=== PATIENT | male | born 1955 | race Caucasian/White ===

== ENCOUNTER → 2018-06-04 | Outpatient (CLI) | payer BC ==
[2018-06-04 12:29] LABS: Basophils # (A) 0.1 k/uL (0-0.2); Basophils % (A) 1 %; Eosinophils # (A) 0.7 k/uL (0-0.7); Eosinophils % (A) 14 %; HCT 43.3 % (39.0-53.0); HGB 14.3 gm/dL (13.0-17.5); Lymphocytes # (A) 1.5 k/uL (1.0-4.8); Lymphocytes % (A) 29 %; MCH 31.3 pg (25.0-35.0); MCHC 33.1 g/dL (31.0-37.0); MCV 94.4 fL (80.0-100.0); Mean Platelet Volume 8.1; Monocytes # (A) 0.2 k/uL (0-1.0); Monocytes % (A) 5 %; Neutrophils # (A) 2.6 k/uL (1.3-7.7); Neutrophils % (A) 50 %; Platelet Count 193 k/uL (150-450); RBC 4.59 m/uL (4.30-5.90); RDW 13.1 % (11.5-15.5); WBC 5.2 k/uL (3.8-10.6)
[2018-06-04 20:50] LABS: Albumin 4.2 g/dL (3.80-4.90); Albumin/Globulin Ratio 1.83 (1.20-2.10); Anion Gap 9.6 mmol/L (4.00-12.00); Calcium 9.1 mg/dL (8.7-10.3); Carbon Dioxide 24.4 mmol/L (21.6-31.8); Globulin 2.3 g/dL (1.6-3.3); Potassium 4.6 mmol/L (3.5-5.5); Total Bilirubin 0.5 mg/dL (0.2-1.2); Total Protein 6.5 g/dL (6.2-8.2)
[2018-06-04 20:53] LABS: T4, Free (Free Thyroxine) 1.2 ng/dL (0.80-1.80)
== END ==
LOC: LABWHC1 11:08
PROVIDERS: ATTEND Internal Medicine
DX: Z00.00 Encounter for general adult medical examination without abnormal findings (principal); E78.5 Hyperlipidemia, unspecified; I10 Essential (primary) hypertension; Z12.5 Encounter for screening for malignant neoplasm of prostate
CPT/HCPCS: 84439; 80061; 80053; 84443; 85025; 83036; 36415; G0103

== ENCOUNTER → 2019-06-03 | Outpatient (CLI) | payer BC ==
[2019-06-03 12:38] LABS: Basophils % (A) 1 %; Eosinophils # (A) 0.7 k/uL (0-0.7); Eosinophils % (A) 14 %; HCT 44.4 % (39.0-53.0); HGB 14.6 gm/dL (13.0-17.5); Lymphocytes # (A) 1.5 k/uL (1.0-4.8); Lymphocytes % (A) 30 %; MCH 31.7 pg (25.0-35.0); MCHC 32.9 g/dL (31.0-37.0); MCV 96.2 fL (80.0-100.0); Mean Platelet Volume 8.7; Monocytes # (A) 0.3 k/uL (0-1.0); Monocytes % (A) 5 %; Neutrophils # (A) 2.4 k/uL (1.3-7.7); Neutrophils % (A) 48 %; Platelet Count 245 k/uL (150-450); RBC 4.61 m/uL (4.30-5.90); RDW 12.7 % (11.5-15.5); WBC 5.1 k/uL (3.8-10.6)
[2019-06-03 18:47] LABS: African American GFR (CKD) 103.5 (60.0-200.0); Albumin 4.7 g/dL (3.80-4.90); Albumin/Globulin Ratio 2.14 (1.60-3.17); Anion Gap 8.6 mmol/L (4.00-12.00); Calcium 9.8 mg/dL (8.7-10.3); Carbon Dioxide 22.4 mmol/L (21.6-31.8); Chol/HDL Ratio 5.05; Globulin 2.2 g/dL (1.6-3.3); LDL Cholesterol,Calculated 114.8 mg/dL (0.0-131.0); Non-African American GFR(CKD) 89.3 (60.0-200.0); Potassium 4.8 mmol/L (3.5-5.5); Total Bilirubin 0.4 mg/dL (0.2-1.2); Total Protein 6.9 g/dL (6.2-8.2); VLDL Calculation 47.2 mg/dL (5.00-40.00)
[2019-06-03 18:54] LABS: T4, Free (Free Thyroxine) 1.2 ng/dL (0.80-1.80)
[2019-06-03 20:44] LABS: Hemoglobin A1C 6.2 % (4.0-6.0)
== END | disposition home or self-care (01) ==
LOC: LABWHC1 11:20
PROVIDERS: ATTEND Internal Medicine
DX: Z00.00 Encounter for general adult medical examination without abnormal findings (principal); E78.5 Hyperlipidemia, unspecified; I10 Essential (primary) hypertension
CPT/HCPCS: 84439; 80061; 80053; 84443; 85025; 83036; 36415; G0103

== ENCOUNTER → 2020-05-25 | Outpatient (CLI) | payer MEDICARE | END | disposition home or self-care (01) | LOC: LABWHC1 11:20 | PROVIDERS: ATTEND Internal Medicine | DX: U07.1 COVID-19 (principal) | CPT/HCPCS: U0003; C9803 ==

== ENCOUNTER → 2020-07-06 | Outpatient (CLI) | payer MEDICARE ==
[2020-07-06 21:11] LABS: Basophils # (A) 0.06 X 10*3/uL (0.00-0.10); Basophils % (A) 1.2 %; Eosinophils # (A) 0.57 X 10*3/uL (0.04-0.35); Eosinophils % (A) 11.1 %; HCT 41.4 % (39.6-50.0); HGB 13.6 g/dL (13.0-17.0); Lymphocytes # (A) 1.65 X 10*3/uL (0.90-5.00); Lymphocytes % (A) 32.2 %; MCH 31.7 pg (27.0-32.0); MCHC 32.9 g/dL (32.0-37.0); MCV 96.5 fL (80.0-97.0); Mean Platelet Volume 11.9 fL (9.5-12.2); Monocytes # (A) 0.42 X 10*3/uL (0.20-1.00); Monocytes % (A) 8.2 %; Neutrophils # (A) 2.41 X 10*3/uL (1.80-7.70); Neutrophils % (A) 47.1 %; Platelet Count 225 X 10*3/uL (140-440); RBC 4.29 X 10*6/uL (4.40-5.60); RDW 12.4 % (11.5-14.5); WBC 5.12 X 10*3/uL (4.50-10.00)
[2020-07-06 22:10] LABS: African American GFR (CKD) 90.5 (60.0-200.0); Albumin 4.7 g/dL (3.80-4.90); Albumin/Globulin Ratio 2.35 (1.60-3.17); Anion Gap 9.3 mmol/L (4.00-12.00); Calcium 9.6 mg/dL (8.7-10.3); Carbon Dioxide 22.7 mmol/L (21.6-31.8); Chol/HDL Ratio 4.62; LDL Cholesterol,Calculated 116.2 mg/dL (0.0-131.0); Non-African American GFR(CKD) 78.1 (60.0-200.0); Potassium 4.5 mmol/L (3.5-5.5); Total Bilirubin 0.6 mg/dL (0.2-1.2); Total Protein 6.7 g/dL (6.2-8.2); VLDL Calculation 24.8 mg/dL (5.00-40.00)
[2020-07-06 23:06] LABS: Hemoglobin A1C 5.6 % (4.0-6.0)
== END | disposition home or self-care (01) ==
LOC: LABWHC1 11:34
PROVIDERS: ATTEND Internal Medicine
DX: Z00.00 Encounter for general adult medical examination without abnormal findings (principal); E11.9 Type 2 diabetes mellitus without complications; Z12.5 Encounter for screening for malignant neoplasm of prostate; I10 Essential (primary) hypertension; E78.5 Hyperlipidemia, unspecified
CPT/HCPCS: 84439; 80061; 80053; 84443; 85025; 83036; 36415; G0103

== ENCOUNTER 2022-05-12 06:27 | Day surgery (SDC) | payer MEDICARE ==
[2022-05-12 07:02] LABS: Glucose,Whole Blood 122 mg/dL (70-110)
[2022-05-12] MEDS ORDERED: PROPOFOL 10 MG/ML 20 ML VIAL IV ONE (07:18)
[2022-05-12] MEDS ORDERED: LIDOCAINE 2% INJ 20 MG/ML (2 ML VIAL) ONE (07:18)
[2022-05-12] MEDS ORDERED: IV FLUID CONTINUATION 900 ML IV ONE (07:38)
--- NOTE | 2022-05-12 07:38 | P.PCN ---
Date of Procedure: 05/12/22 Procedure(s) Performed: Brief history: Patient is a pleasant 67-year-old white male scheduled for an elective upper endoscopy as well as colonoscopy as a part of evaluation of iron deficiency anemia.he denies any abdominal pain. Procedure performed: Esophagogastroduodenoscopy and biopsy Colonoscopy Preoperative diagnosis: iron deficiency anemia [place] [facility] [place] After informed consent was obtained from the patient was brought into the endoscopy unit and IV sedation was administered by anesthesia under continuous monitoring. Initially upper endoscopy was done. The Olympus GF 160 video endoscope was inserted inserted into the mouth and esophagus intubated without any difficulty and was gradually advanced into the stomach and duodenum and carefully examined. The bulb and second part of the duodenum appeared normal. The scope was then withdrawn into the stomach adequately insufflated with air and upon careful examination the antrum and body, cardia and fundus appeared normal. The scope was then withdrawn into the esophagus. The GE junction was located at 40 cm to the incisors. small sliding-type well hernia noted. There were linear erosions and once a fissure ulceration at the GE junction consistent with LA grade C reflux esophagitis. Rest of the esophagus appeared normal. Patient tolerated the procedure well. At this time the patient continued to remain sedation. Initial digital rectal examination was normal. Olympus CF 160 video colonoscope was then inserted into the rectum and gradually advanced to the cecum without any difficulty. Careful examination was performed as the scope was gradually being withdrawn. The prep was fair.fair.. The cecum, ascending colon, transverse colon, descending colon, sigmoid colon and rectum appeared normal. Scattered sigmoid diverticulosis. Retroflexion was performed in the rectum and no lesions were noted. Patient tolerated the procedure well. Impression: 1.Upper endoscopy revealed linear erosions and once a fissure ulceration at the GE junction consistent with LA grade C reflux esophagitis, small hiatal hernia and mild gastritis 2.Colonoscopy was within normal limits with no evidence of colorectal neoplasia, except for scattered sigmoid diverticulosis Recommendations: Findings of this examination were discussed with the patient as well as his family. He was advised to follow with the biopsy results. He'll be started on Prilosec 20 mg daily and briefly educated about antireflux measures. Recommend a repeat screening colonoscopy in 10 years.
[2022-05-12 07:47] VITALS: RESP 18
[2022-05-12 08:20] VITALS: PULSE 88
[2022-05-12 08:22] VITALS: BP 131/76
== END 2022-05-12 08:40 | disposition home or self-care (01) ==
LOC: ORWHC2ENDO 06:27
PROVIDERS: ATTEND Internal Medicine Gastroenterology
DX: K29.50 Unspecified chronic gastritis without bleeding (principal); K44.9 Diaphragmatic hernia without obstruction or gangrene; K57.30 Diverticulosis of large intestine without perforation or abscess without bleeding; K25.9 Gastric ulcer, unspecified as acute or chronic, without hemorrhage or perforation; K31.89 Other diseases of stomach and duodenum; D50.9 Iron deficiency anemia, unspecified
CPT/HCPCS: 88305; 45378; 43239; J2704; J2001

== ENCOUNTER → 2023-01-10 | Outpatient (CLI) | payer MEDICARE ==
[2023-01-11 02:05] LABS: Basophils # (A) 0.06 X 10*3/uL (0.00-0.10); Eosinophils # (A) 0.52 X 10*3/uL (0.04-0.35); HCT 42.9 % (39.6-50.0); HGB 14.3 d/dL (13.0-17.0); Lymphocytes # (A) 1.49 X 10*3/uL (0.90-5.00); Lymphocytes % (A) 25.9 %; MCH 32.6 pg (27.0-32.0); MCHC 33.3 d/dL (32.0-37.0); MCV 97.9 FL (80.0-97.0); Mean Platelet Volume 11.9 FL (9.5-12.2); Monocytes # (A) 0.38 X 10*3/uL (0.20-1.00); Monocytes % (A) 6.6 %; NRBC Per 100 WBC 0 X 10*3/uL (0.00-0.01); Neutrophils % (A) 57.3 %; Platelet Count 234 X 10*3/uL (140-440); RBC 4.38 X 10*6/uL (4.40-5.60); RDW 12.2 % (11.5-14.5); WBC 5.76 X 10*3/uL (4.50-10.00)
[2023-01-11 03:08] LABS: ALT 38 U/L (10-49); AST 29 U/L (14-35); Albumin 4.5 d/dL (3.8-4.9); Albumin/Globulin Ratio 1.73 Ratio (1.60-3.17); Alkaline Phosphatase 60 U/L (41-126); Blood Urea Nitrogen 14.2 mg/dL (9.0-27.0); Calcium 9.9 mg/dL (8.7-10.3); Chloride 108 mmol/L (96-109); Chol/HDL Ratio 4.96 Ratio; Globulin 2.6 d/dL (1.6-3.3); Glucose 145 mg/dL (70-110); LDL Cholesterol,Calculated 131.5 mg/dL (0.0-131.0); Sodium 141 mmol/L (135-145); Total Bilirubin 0.4 mg/dL (0.3-1.2); Total Protein 7.1 d/dL (6.2-8.2)
== END | disposition home or self-care (01) ==
LOC: LABWHC1 11:12
PROVIDERS: ATTEND Internal Medicine
DX: Z00.00 Encounter for general adult medical examination without abnormal findings (principal); Z12.5 Encounter for screening for malignant neoplasm of prostate; I10 Essential (primary) hypertension; E11.9 Type 2 diabetes mellitus without complications; E78.2 Mixed hyperlipidemia; M19.90 Unspecified osteoarthritis, unspecified site
CPT/HCPCS: 84439; 80061; 80053; 84443; 85025; 82306; 83036; 36415; G0103

== ENCOUNTER → 2024-10-09 | Outpatient (CLI) | payer MEDICARE ==
[2024-10-09 21:05] LABS: ALT 30 U/L (10-49); AST 18 U/L (14-35); Albumin 4.3 g/dL (3.8-4.9); Albumin/Globulin Ratio 1.65 Ratio (1.60-3.17); Alkaline Phosphatase 65 U/L (41-126); Blood Urea Nitrogen 22.2 mg/dL (9.0-27.0); Calcium 9.5 mg/dL (8.7-10.3); Carbon Dioxide 19.7 mmol/L (21.6-31.8); Chloride 108 mmol/L (96-109); Chol/HDL Ratio 5.87 Ratio; Globulin 2.6 g/dL (1.6-3.3); Glucose 149 mg/dL (70-110); LDL Cholesterol,Calculated 138.8 mg/dL (0.0-131.0); PSA Annual Screen 0.579 ng/mL (0.000-4.000); Potassium 4.9 mmol/L (3.5-5.5); Sodium 139 mmol/L (135-145); T4, Free (Free Thyroxine) 1.05 ng/dL (0.80-1.80); Total Bilirubin 0.2 mg/dL (0.3-1.2); Total Protein 6.9 g/dL (6.2-8.2)
[2024-10-09 21:20] LABS: Basophils # (A) 0.06 X 10*3/uL (0.00-0.10); Basophils % (A) 0.9 %; Eosinophils # (A) 0.67 X 10*3/uL (0.04-0.35); Eosinophils % (A) 10.2 %; HCT 39.9 % (39.6-50.0); HGB 13.6 g/dL (13.0-17.0); Lymphocytes # (A) 1.78 X 10*3/uL (0.90-5.00); MCH 32.4 pg (27.0-32.0); MCHC 34.1 g/dL (32.0-37.0); Mean Platelet Volume 11.6 FL (9.5-12.2); Monocytes # (A) 0.48 X 10*3/uL (0.20-1.00); Monocytes % (A) 7.3 %; NRBC Per 100 WBC 0 X 10*3/uL (0.00-0.01); Neutrophils # (A) 3.58 X 10*3/uL (1.80-7.70); Neutrophils % (A) 54.3 %; Platelet Count 267 X 10*3/uL (140-440); RDW 12.3 % (11.5-14.5); WBC 6.59 X 10*3/uL (4.50-10.00)
== END | disposition home or self-care (01) ==
LOC: LABWHC1 14:27
PROVIDERS: ATTEND Internal Medicine
DX: Z12.5 Encounter for screening for malignant neoplasm of prostate (principal); I10 Essential (primary) hypertension; E78.5 Hyperlipidemia, unspecified
CPT/HCPCS: 84439; 80061; 80053; 84443; 85025; 83036; 36415; G0103

== ENCOUNTER 2024-12-02 10:08 | Inpatient (IN) | payer MEDICARE ==
--- NOTE | 2024-12-02 10:45 | ED ---
General Adult HPI - General Chief complaint: Abdominal Pain Stated complaint: Abd pain, vomiting Time Seen by Provider: 12/02/24 10:14 Source: patient, RN notes reviewed Mode of arrival: ambulatory Limitations: no limitations - History of Present Illness Initial comments: 6-year-old male presents to the emergency department for evaluation of right-sided abdominal pain. Patient notes that this started around noon yesterday. He notes the pain is in the right lower quadrant. He notes that his aggravated with food. He is unable to get comfortable. He does endorse nausea and vomiting. Reports decrease in his bowel movements. Denies any fever or chills. Denies any prior abdominal surgeries. Past medical history includes hypertension, diabetes. - Related Data Home Medications Medication Instructions Recorded Confirmed metFORMIN HCL [Glucophage] 500 mg PO BID 05/10/22 12/02/24 Betamethasone Dipropionate 1 applic TOPICAL DAILY PRN 12/02/24 12/02/24 [Betamethasone Dipropionate 0.05%] Fluocinonide 0.05% [Lidex 0.05% 1 applic TOPICAL BID PRN 12/02/24 12/02/24 cream] Hydrocortisone Cream 1 applic TOPICAL BID PRN 12/02/24 12/02/24 [Hydrocortisone 2.5% Cream] Omeprazole 20 mg PO DAILY PRN 12/02/24 12/02/24 Simvastatin [Zocor] 20 mg PO DAILY 12/02/24 12/02/24 Triamcinolone 0.1% Ointment 1 applic TOPICAL BID PRN 12/02/24 12/02/24 [Kenalog 0.1% Ointment] glipiZIDE [glipiZIDE ER] 10 mg PO DAILY 12/02/24 12/02/24 oxyCODONE-APAP 5-325MG [Percocet 1 tab PO Q6H PRN 12/02/24 12/02/24 5-325 mg] Previous Rx's Medication Instructions Recorded Apixaban [Eliquis] 5 mg PO BID #60 tab 12/03/24 Naproxen [Naprosyn] 500 mg PO BID PRN 3 Days #0 12/04/24 amLODIPine [Norvasc] 10 mg PO DAILY #30 tab 12/04/24 lisinopriL [Zestril] 40 mg PO DAILY #60 tab 12/04/24 Allergies Allergy/AdvReac Type Severity Reaction Status Date / Time No Known Allergies Allergy Verified 12/02/24 12:06 Review of Systems ROS Statement: Those systems with pertinent positive or pertinent negative responses have been documented in the HPI. ROS Other: All systems not noted in ROS Statement are negative. Past Medical History Past Medical History: Diabetes Mellitus, Hyperlipidemia, Hypertension History of Any Multi-Drug Resistant Organisms: None Reported Past Surgical History: Orthopedic Surgery Additional Past Surgical History / Comment(s): rt shoulder arthroscopy rotator cuff repair, Past Anesthesia/Blood Transfusion Reactions: No Reported Reaction Past Psychological History: No Psychological Hx Reported Smoking Status: Never smoker General Exam Limitations: no limitations General appearance: alert, in no apparent distress Head exam: Present: atraumatic, normocephalic, normal inspection Eye exam: Present: normal appearance, PERRL, EOMI. Absent: scleral icterus, conjunctival injection, periorbital swelling ENT exam: Present: normal exam, mucous membranes moist Neck exam: Present: normal inspection. Absent: tenderness, meningismus, lymphadenopathy Respiratory exam: Present: normal lung sounds bilaterally. Absent: respiratory distress, wheezes, rales, rhonchi, stridor Cardiovascular Exam: Present: regular rate, irregular rhythm, normal heart sounds. Absent: systolic murmur, diastolic murmur, rubs, gallop, clicks GI/Abdominal exam: Present: soft, tenderness (Right lower quadrant), normal bowel sounds. Absent: distended, guarding, rebound, rigid Extremities exam: Present: normal inspection, full ROM, normal capillary refill. Absent: tenderness, pedal edema, joint swelling, calf tenderness Neurological exam: Present: alert, oriented X3 Psychiatric exam: Present: normal affect, normal mood Skin exam: Present: warm, dry, intact, normal color. Absent: rash Course Vital Signs 12/02/24 12/02/24 12/02/24 10:10 16:17 20:00 Temperature 97.6 F Pulse Rate 83 79 Pulse Rate [ 85 Pulse Oximetery ] Respiratory 20 20 Rate Blood Pressure 166/98 135/76 Blood Pressure [Right Arm] O2 Sat by Pulse 98 98 Oximetry 12/02/24 12/02/24 12/03/24 21:00 23:42 00:30 Temperature 97.8 F 99 F Pulse Rate 67 81 Pulse Rate [ 95 Pulse Oximetery ] Respiratory 17 17 16 Rate Blood Pressure 128/79 136/67 Blood Pressure 126/80 [Right Arm] O2 Sat by Pulse 96 96 98 Oximetry Medical Decision Making - Medical Decision Making Was pt. sent in by a medical professional or institution (LATOYA Conde, TOPOGRAPHICAL FIELD ASSISTANT, urgent care, hospital, or long-term...) When possible be specific @ -No Did you speak to anyone other than the patient for history (EMS, parent, family, police, friend...)? What history was obtained from this source @ -No Did you review nursing and triage notes (agree or disagree)? Why? @ -I reviewed and agree with nursing and triage notes Were old charts reviewed (outside hosp., previous admission, EMS record, old EKG, old radiological studies, urgent care reports/EKG's, long-term records)? Report findings @ -No old charts were reviewed Differential Diagnosis (chest pain, altered mental status, abdominal pain women, abdominal pain men, vaginal bleeding, weakness, fever, dyspnea, syncope, headache, dizziness, GI bleed, back pain, seizure, CVA, palpatations, mental health, musculoskeletal)? @ -Differential Abdominal Pain Men: Appendicitis, cholecystitis, diverticulosis, ischemic bowel, pancreatitis, hepat itis, UTI, gastroenteritis, AAA, incarcerated hernia, bowel obstruction, constipation, inflammatory bowel, hepatitis, peptic ulcer disease, splenic infarction, perforated viscus, testicular torsion, this is not meant to be an all-inclusive list EKG interpreted by me (3pts min.). @ -EKG@1120 shows A-fib with a rate of 80, QRS 104, QT/QTc [id number] X-rays interpreted by me (1pt min.). @ -None done CT interpreted by me (1pt min.). @ -CT of the abdomen pelvis obtained reveals a 6 mm right-sided urolithiasis U/S interpreted by me (1pt. min.). @ -None done What testing was considered but not performed or refused? (CT, X-rays, U/S, labs)? Why? @ -None What meds were considered but not given or refused? Why? @ -None Did you discuss the management of the patient with other professionals (professionals i.e. LATOYA Conde, TOPOGRAPHICAL FIELD ASSISTANT, lab, RT, psych nurse, social and political studies professor, video production assistant, teacher, chief innovation officer, outsole caser)? Give summary @ -Management discussed with [facility] was accepting of the admission Was smoking cessation discussed for >3mins.? @ -No Was critical care preformed (if so, how long)? @ -No Were there social determinants of health that impacted care today? How? (Homelessness, low income, unemployed, alcoholism, drug addiction, transportation, low edu. Level, literacy, decrease access to med. care, [facility], rehab)? @ -No Was there de-escalation of care discussed even if they declined (Discuss DNR or withdrawal of care, Hospice)? DNR status @ -No What co-morbidities impacted this encounter? (DM, HTN, Smoking, COPD, CAD, Cancer, CVA, ARF, Chemo, Hep., AIDS, mental health diagnosis, sleep apnea, morbid obesity)? @ -None Was patient admitted / discharged? Hospital course, mention meds given and route, prescriptions, significant lab abnormalities, going to OR and other pertinent info. @ -Admitted patient presented emergency department for evaluation of abdominal pain. EKG was obtained which shows A-fib with a rate of 80. Patient does not have a history of atrial fibrillation. Laboratory studies reveal. Creatinine 1.9, creatinine 1.3 which is mildly elevated from the patient's baseline. UA reveals moderate blood but no evidence of infectious process.CT abdomen pelvis reveals mild right sided hydronephrosis secondary to 6 mm obstructing calculus at the UPJ. Patient's pain well-controlled with Toradol. Patient will be admitted for new onset afib and kidney stone. Patient understanding and agreeable with plan. Patient stable at time of admission. Case discussed with Dr. Barba Undiagnosed new problem with uncertain prognosis? @ -afib Drug Therapy requiring intensive monitoring for toxicity (Heparin, Nitro, Insulin, Cardizem)? @ -heparin Were any procedures done? @ -No Diagnosis/symptom? @ -urolithiasis, new onset afib Acute, or Chronic, or Acute on Chronic? @ -acute Uncomplicated (without systemic symptoms) or Complicated (systemic symptoms)? @ -uncomplicated Side effects of treatment? @ -No Exacerbation, Progression, or Severe Exacerbation? @ -No Poses a threat to life or bodily function? How? (Chest pain, USA, CT, pneumonia, PE, COPD, DKA, ARF, appy, cholecystitis, CVA, Diverticulitis, Homicidal, Suicidal, threat to staff... and all critical care pts) @ -No - Lab Data Result diagrams: 12/04/24 06:12 12/04/24 06:12 Lab Results 12/02/24 12/02/24 12/02/24 Range/Units 10:49 10:49 10:49 WBC 12.90 H (4.50-10.00) 10*3/uL RBC 4.39 L (4.40-5.60) 10*6/uL Hgb 14.1 (13.0-17.0) g/dL Hct 40.3 (39.6-50.0) % MCV 91.8 (80.0-97.0) fL MCH 32.1 H (27.0-32.0) pg MCHC 35.0 (32.0-37.0) g/dL Plt Count 237 (140-440) 10*3/uL MPV 10.7 (9.5-12.2) fL Immature Gran % (Auto) 0.3 % Neutrophils % 84.3 % Lymphocytes % 9.1 % Monocytes % 4.7 % Eosinophils % 1.1 % Basophils % 0.5 % Immature Gran # 0.04 (0.00-0.04) 10*3/uL Neutrophils # 10.87 H (1.80-7.70) 10*3/uL Lymphocytes # 1.18 (0.90-5.00) 10*3/uL Monocytes # 0.61 (0.20-1.00) 10*3/uL Eosinophils # 0.14 (0.04-0.35) 10*3/uL Basophils # 0.06 (0.00-0.10) 10*3/uL Sodium 133 L (137-145) mmol/L Potassium 4.5 (3.5-5.1) mmol/L Chloride 101 (98-107) mmol/L Carbon Dioxide 20 L (22-30) mmol/L Anion Gap 12 mmol/L BUN 17 (9-20) mg/dL Creatinine 1.31 H (0.66-1.25) mg/dL Est GFR (CKD-EPI)AfAm 64 (>60 ml/min/1.73 sqM) Est GFR (CKD-EPI)NonAf 55 (>60 ml/min/1.73 sqM) Glucose 191 H (74-99) mg/dL Plasma Lactic Acid Don 1.9 (0.7-2.0) mmol/L Calcium 9.4 (8.4-10.2) mg/dL Total Bilirubin 0.8 (0.2-1.3) mg/dL AST 28 (17-59) U/L ALT 44 (4-49) U/L Alkaline Phosphatase 70 (38-126) U/L Total Protein 7.3 (6.3-8.2) g/dL Albumin 4.4 (3.5-5.0) g/dL Amylase 54 (30-110) U/L Lipase 219 (23-300) U/L Urine Color Urine Appearance (Clear) Urine pH (5.0-8.0) Ur Specific Clarence (1.001-1.035) Urine Protein (Negative) Urine Glucose (UA) (Negative) Urine Ketones (Negative) Urine Blood (Negative) Urine Nitrite (Negative) Urine Bilirubin (Negative) Urine Urobilinogen (<2.0) mg/dL Ur Leukocyte Esterase (Negative) Urine RBC (0-5) /hpf Urine WBC (0-5) /hpf Ur Squamous Epith Cells (0-4) /hpf Urine Bacteria (None) /hpf 12/02/24 Range/Units 12:25 WBC (4.50-10.00) 10*3/uL RBC (4.40-5.60) 10*6/uL Hgb (13.0-17.0) g/dL Hct (39.6-50.0) % MCV (80.0-97.0) fL MCH (27.0-32.0) pg MCHC (32.0-37.0) g/dL Plt Count (140-440) 10*3/uL MPV (9.5-12.2) fL Immature Gran % (Auto) % Neutrophils % % Lymphocytes % % Monocytes % % Eosinophils % % Basophils % % Immature Gran # (0.00-0.04) 10*3/uL Neutrophils # (1.80-7.70) 10*3/uL Lymphocytes # (0.90-5.00) 10*3/uL Monocytes # (0.20-1.00) 10*3/uL Eosinophils # (0.04-0.35) 10*3/uL Basophils # (0.00-0.10) 10*3/uL Sodium (137-145) mmol/L Potassium (3.5-5.1) mmol/L Chloride (98-107) mmol/L Carbon Dioxide (22-30) mmol/L Anion Gap mmol/L BUN (9-20) mg/dL Creatinine (0.66-1.25) mg/dL Est GFR (CKD-EPI)AfAm (>60 ml/min/1.73 sqM) Est GFR (CKD-EPI)NonAf (>60 ml/min/1.73 sqM) Glucose (74-99) mg/dL Plasma Lactic Acid Don (0.7-2.0) mmol/L Calcium (8.4-10.2) mg/dL Total Bilirubin (0.2-1.3) mg/dL AST (17-59) U/L ALT (4-49) U/L Alkaline Phosphatase (38-126) U/L Total Protein (6.3-8.2) g/dL Albumin (3.5-5.0) g/dL Amylase (30-110) U/L Lipase (23-300) U/L Urine Color Colorless Urine Appearance Clear (Clear) Urine pH 6.5 (5.0-8.0) Ur Specific Clarence 1.012 (1.001-1.035) Urine Protein Negative (Negative) Urine Glucose (UA) Negative (Negative) Urine Ketones Trace H (Negative) Urine Blood Moderate H (Negative) Urine Nitrite Negative (Negative) Urine Bilirubin Negative (Negative) Urine Urobilinogen <2.0 (<2.0) mg/dL Ur Leukocyte Esterase Negative (Negative) Urine RBC 6 H (0-5) /hpf Urine WBC 1 (0-5) /hpf Ur Squamous Epith Cells <1 (0-4) /hpf Urine Bacteria Occasional H (None) /hpf Disposition Clinical Impression: Urolithiasis, New onset a-fib Disposition: ADMITTED IP TO THIS HOSP Condition: Stable Is patient prescribed a controlled substance at d/c from ED?: No
[2024-12-02] MEDS: LACTATED RINGERS 1,000 ML IV ONE (10:52)
[2024-12-02] MEDS: ONDANSETRON 4 MG/2 ML VIAL IVP STA (10:53)
[2024-12-02] MEDS: KETOROLAC 15 MG/ML 1 ML VIAL IVP STA (10:54)
[2024-12-02 11:02] LABS: Basophils # (A) 0.06 10*3/uL (0.00-0.10); Basophils % (A) 0.5 %; Eosinophils # (A) 0.14 10*3/uL (0.04-0.35); Eosinophils % (A) 1.1 %; HCT 40.3 % (39.6-50.0); HGB 14.1 g/dL (13.0-17.0); Lymphocytes # (A) 1.18 10*3/uL (0.90-5.00); Lymphocytes % (A) 9.1 %; MCH 32.1 pg (27.0-32.0); MCHC 35.0 g/dL (32.0-37.0); MCV 91.8 fL (80.0-97.0); Monocytes # (A) 0.61 10*3/uL (0.20-1.00); Monocytes % (A) 4.7 %; Neutrophils # (A) 10.87 10*3/uL (1.80-7.70); Neutrophils % (A) 84.3 %; Platelet Count 237 10*3/uL (140-440); RBC 4.39 10*6/uL (4.40-5.60); RDW 12.2 % (11.5-14.5); WBC 12.90 10*3/uL (4.50-10.00)
[2024-12-02 11:15] LABS: ALT 44 U/L (4-49); AST 28 U/L (17-59); African American GFR (CKD) 64 (>60 ml/min/1.73 sqM); Albumin 4.4 g/dL (3.5-5.0); Alkaline Phosphatase 70 U/L (38-126); Amylase 54 U/L (30-110); Anion Gap 12 mmol/L; Blood Urea Nitrogen 17 mg/dL (9-20); Calcium 9.4 mg/dL (8.4-10.2); Carbon Dioxide 20 mmol/L (22-30); Chloride 101 mmol/L (98-107); Glucose 191 mg/dL (74-99); Lipase 219 U/L (23-300); Non-African American GFR(CKD) 55 (>60 ml/min/1.73 sqM); Potassium 4.5 mmol/L (3.5-5.1); Sodium 133 mmol/L (137-145); Total Protein 7.3 g/dL (6.3-8.2)
[2024-12-02 12:35] LABS: Bacteria,Urine Occasional /hpf; Bilirubin,Urine Negative (Negative); Blood,Urine Moderate (Negative); Color,Urine Colorless; Glucose,Urine (UA) Negative (Negative); Ketones,Urine Trace (Negative); Leukocyte Esterase,Urine Negative (Negative); Nitrite,Urine Negative (Negative); PH, Urine 6.5 (5.0-8.0); Protein,Urine Negative (Negative); RBC,Urine 6 /hpf (0-5); Specific Gravity,Urine 1.012 (1.001-1.035); Squamous Epithelial Cell,Urine <1 /hpf (0-4); Urobilinogen,Urine <2.0 mg/dL (<2.0); WBC,Urine 1 /hpf (0-5)
--- NOTE | 2024-12-02 12:51 | CT ---
EXAMINATION TYPE: CT abdomen pelvis w con DATE OF EXAM: 12/02/2024 12:07 PM COMPARISON: None. CLINICAL INDICATION: Male, 69 years old with history of RLQ pain; RLQ pain with vomiting TECHNIQUE: Axial CT abdomen pelvis w con;Sagittal and coronal reformats were created on a separate w orkstation. Contrast used:100 ml mL of Isovue 300 with IV Contrast, (none if empty) Oral contrast used: without Oral Contrast (none if empty) CT DLP: 2910.9 mGycm, Automated exposure control for dose reduction was used. FINDINGS: LOWER CHEST: 3 mm right lower lobe pulmonary nodule series 203 image 25. ABDOMEN LIVER: Diffusely hypoattenuating parenchyma. GALLBLADDER AND BILE DUCTS: Unremarkable. PANCREAS: Unremarkable. SPLEEN: Unremarkable. ADRENAL GLANDS: Unremarkable. KIDNEYS AND URETERS: Mild right hydronephrosis secondary obstructing 6 mm calculus at the ureteropelv ic junction. Additional nonobstructing right renal calculi. No left renal calculi. PELVIS BLADDER: No evidence for wall thickening or mass given limitations of exam. REPRODUCTIVE: Unremarkable. ABDOMEN & PELVIS STOMACH AND BOWEL: No evidence of bowel obstruction. Scattered colonic diverticula. The appendix is n ormal. PERITONEUM/RETROPERITONEUM: No evidence of pneumoperitoneum or free fluid. VASCULATURE: No evidence of aortic aneurysm. MUSCULOSKELETAL: No acute osseous abnormalities. Moderate disc degeneration changes are present throu ghout the thoracolumbar spine. Grade 1 anterolisthesis L4 and L5. Severe facet joint arthropathy thro ughout the spine. LYMPH NODES: No gross evidence for lymphadenopathy. SOFT TISSUE/ABDOMINAL WALL: Fat-containing ventral hernias. IMPRESSION: 1. Mild right hydronephrosis secondary obstructing 6 mm calculus at the ureteropelvic junction. Add itional nonobstructing right renal calculi. 2. Colonic diverticulosis. 3. Fat-containing ventral hernias. 4. Hepatic steatosis. 5. Grade 1 anterolisthesis L4 and L5. 6. 3 mm right lower lobe pulmonary nodule series 203 image 25. Pulmonary nodules measuring less than 6 mm. Incidentally detected nodules of this size are generally considered benign in individuals with out concomitant risk factors such as smoking history or other risk factors for malignancy. Followup i maging is generally not performed, in accordance with Fleischner Society guidelines. In high-risk pat ients, a [address] thorax can be considered. [facility], , 12/02/2024 12:49 PM
[2024-12-02] MEDS ORDERED: NALOXONE 0.4 MG/ML 1 ML VIAL IV PRN (14:04)
[2024-12-02 15:08] LABS: INR 1.1 (<1.2); Partial Thromboplastin Time 24.5 sec (22.0-30.0); Prothrombin Time 12.1 sec (10.0-12.5)
[2024-12-02] MEDS: HEPARIN SODIUM 1,000 UN/ML (10ML VL) IV ONE (15:20)
[2024-12-02] MEDS: HEPARIN SOD,PORK IN 0.45% NACL 25,000 UNIT in 0.45% NACL 1 250ML.BAG IV SCH (15:21)
[2024-12-02] MEDS: SODIUM CHLORIDE 0.9% 1,000 ML IV SCH (15:22)
[2024-12-02] MEDS: ONDANSETRON 4 MG/2 ML VIAL IVP PRN (16:47)
[2024-12-02] MEDS: MORPHINE SULFATE 4 MG/ML SYRINGE IV PRN (16:47)
[2024-12-02] MEDS ORDERED: oxyCODONE-APAP 5-325MG 1 EACH TAB PO PRN (17:18)
[2024-12-02] MEDS ORDERED: BETAMETHASONE DIPROPIONATE 0.05% CREAM 15 GM TUBE TOPICAL PRN (17:18)
--- NOTE | 2024-12-02 17:25 | P.HPIM ---
History of Present Illness This is a pleasant 69 years old male with past medical history of hypertension diabetes mellitus and dyslipidemia. Presents because of abdominal pain since yesterday about 9/10 in severity in the right upper quadrant and to the right side of the abdomen nonradiating feels just like dull pain increased with movement. He vomits each time he tries to eat anything other than water. He vomited 4 times today. He had some small bowel movement Patient denies chest pain or dyspnea. No neurological symptoms no dysuria or urgency He does not smoke drink or illicit drugs. No fever. Blood pressure is stable heart rate 83. WBC is elevated at 12,000 creatinine slightly up above baseline of 0.9-1.0 up to 1.3. Liver enzymes and INR were unremarkable. Urinalysis showing microscopic hematuria. CT of the abdomen and pelvis showing mild right hydronephrosis secondary to obstructive 6 mm calculus at the ureteropelvic junction. There are some pulmonary nodules up to 3 mm in the right lower lung. The radiologist recommend follow-up in 12 months. Patient informed and he agree. EKG showing A-fib with rate controlled around [address]-T changes. Patient was started on heparin drip and normal sinus 75 m/h. Admitted with cardiology team consult Review of Systems Review of systems CONSTITUTIONAL: No fever, no malaise, no fatigue. HEENT: No recent visual problems or hearing problems. Denied any sore throat. CARDIOVASCULAR: No orthopnea, PND, no palpitations, no syncope. PULMONARY: No shortness of breath, no cough, no hemoptysis. GASTROINTESTINAL: As above NEUROLOGICAL: No headaches, no weakness, no numbness. HEMATOLOGICAL: Denies any bleeding or petechiae. GENITOURINARY: Denies any burning micturition, frequency, or urgency. MUSCULOSKELETAL/RHEUMATOLOGICAL: Denies any joint pain, swelling, or any muscle pain. ENDOCRINE: Denies any polyuria or polydipsia. Past Medical History Past Medical History: Diabetes Mellitus, Hyperlipidemia, Hypertension History of Any Multi-Drug Resistant Organisms: None Reported Past Surgical History: Orthopedic Surgery Additional Past Surgical History / Comment(s): rt shoulder arthroscopy rotator cuff repair, Past Anesthesia/Blood Transfusion Reactions: No Reported Reaction Past Psychological History: No Psychological Hx Reported Smoking Status: Never smoker Medications and Allergies Home Medications Medication Instructions Recorded Confirmed Type metFORMIN HCL [Glucophage] 500 mg PO BID 05/10/22 12/02/24 History Betamethasone Dipropionate 1 applic TOPICAL DAILY PRN 12/02/24 12/02/24 History [Betamethasone Dipropionate 0.05%] Fluocinonide 0.05% [Lidex 0.05% 1 applic TOPICAL BID PRN 12/02/24 12/02/24 History cream] Hydrocortisone Cream 1 applic TOPICAL BID PRN 12/02/24 12/02/24 History [Hydrocortisone 2.5% Cream] Naproxen [Naprosyn] 500 mg PO BID PRN 12/02/24 12/02/24 History Omeprazole 20 mg PO DAILY PRN 12/02/24 12/02/24 History Simvastatin [Zocor] 20 mg PO DAILY 12/02/24 12/02/24 History Triamcinolone 0.1% Ointment 1 applic TOPICAL BID PRN 12/02/24 12/02/24 History [Kenalog 0.1% Ointment] glipiZIDE [glipiZIDE ER] 10 mg PO DAILY 12/02/24 12/02/24 History oxyCODONE-APAP 5-325MG [Percocet 1 tab PO Q6H PRN 12/02/24 12/02/24 History 5-325 mg] Allergies Allergy/AdvReac Type Severity Reaction Status Date / Time No Known Allergies Allergy Verified 12/02/24 12:06 Physical Exam Vitals: Vital Signs Temp Pulse Resp BP Pulse Ox 12/02/24 16:17 79 20 135/76 98 12/02/24 10:10 97.6 F 83 20 166/98 98 Intake and Output 12/02/24 12/02/24 12/02/24 06:59 14:59 22:59 Other: Weight 124.738 kg GENERAL: The patient is alert and oriented x3, not in any acute distress. Well developed, well nourished. HEENT: Pupils are round and equally reacting to light. EOMI. No scleral icterus. No conjunctival pallor. Normocephalic, atraumatic. No pharyngeal erythema. No thyromegaly. CARDIOVASCULAR: S1 and S2 present. No murmurs, rubs, or gallops. PULMONARY: Chest is clear to auscultation, no wheezing , no crackles. -ABDOMEN: Soft, n right abdominal tenderness, no guarding or rebound tenderness, nondistended, normoactive bowel sounds. No palpable organomegaly. MUSCULOSKELETAL: No joint swelling or deformity. EXTREMITIES: No cyanosis, clubbing, or pedal edema. NEUROLOGICAL: Gross neurological examination did not reveal any focal deficits. SKIN: No rashes. no petechiae. Results CBC & Chem 7: 12/02/24 10:49 12/02/24 10:49 Labs: Abnormal Lab Results - Last 24 Hours (Table) 12/02/24 12/02/24 12/02/24 Range/Units 10:49 10:49 12:25 WBC 12.90 H (4.50-10.00) 10*3/uL RBC 4.39 L (4.40-5.60) 10*6/uL MCH 32.1 H (27.0-32.0) pg Neutrophils # 10.87 H (1.80-7.70) 10*3/uL Sodium 133 L (137-145) mmol/L Carbon Dioxide 20 L (22-30) mmol/L Creatinine 1.31 H (0.66-1.25) mg/dL Glucose 191 H (74-99) mg/dL Urine Ketones Trace H (Negative) Urine Blood Moderate H (Negative) Urine RBC 6 H (0-5) /hpf Urine Bacteria Occasional H (None) /hpf Assessment and Plan Assessment: New onset A-fib with controlled rate Right kidney stone 6 mm at the right ureteropelvic junction with mild right hydronephrosis Acute kidney injury, mild Lung nodule 3 mm in the right lower lung. Hypertension Hyperlipidemia Diabetes mellitus Obesity with BMI of 37.3. Plan: Continue with normal saline Continue with heparin drip Monitor glucose. Hold metformin naproxen. Continue the glipizide. Pain management. Cardiac team consult Neurology team consult Labs and medication were reviewed.. Continue same treatment. Continue with symptomatic treatment. Resume home medication. Monitor labs and vitals. DVT and GI prophylaxis. Further recommendations as per clinical course of the patient DVT prophylaxis: heparin GI Prophylaxis: Pepcid Prognosis is guarded
[2024-12-02] MEDS: HEPARIN SODIUM 1,000 UN/ML (10ML VL) IV PRN (20:18)
[2024-12-02] MEDS: FAMOTIDINE 20 MG/2 ML VIAL IV SCH (20:44)
[2024-12-03 02:42] LABS: Basophils # (A) 0.05 10*3/uL (0.00-0.10); Basophils % (A) 0.7 %; Eosinophils # (A) 0.40 10*3/uL (0.04-0.35); Eosinophils % (A) 5.2 %; HCT 37.2 % (39.6-50.0); HGB 12.6 g/dL (13.0-17.0); Lymphocytes # (A) 1.77 10*3/uL (0.90-5.00); Lymphocytes % (A) 23.1 %; MCH 32.1 pg (27.0-32.0); MCHC 33.9 g/dL (32.0-37.0); MCV 94.7 fL (80.0-97.0); Monocytes # (A) 0.64 10*3/uL (0.20-1.00); Monocytes % (A) 8.4 %; Neutrophils # (A) 4.77 10*3/uL (1.80-7.70); Neutrophils % (A) 62.2 %; Platelet Count 195 10*3/uL (140-440); RBC 3.93 10*6/uL (4.40-5.60); RDW 12.2 % (11.5-14.5); WBC 7.66 10*3/uL (4.50-10.00)
[2024-12-03 02:56] LABS: INR 1.1 (<1.2); Prothrombin Time 12.2 sec (10.0-12.5)
[2024-12-03 03:06] LABS: African American GFR (CKD) 65 (>60 ml/min/1.73 sqM); Anion Gap 9 mmol/L; Blood Urea Nitrogen 18 mg/dL (9-20); Calcium 8.9 mg/dL (8.4-10.2); Carbon Dioxide 23 mmol/L (22-30); Chloride 104 mmol/L (98-107); Glucose 144 mg/dL (74-99); Non-African American GFR(CKD) 56 (>60 ml/min/1.73 sqM); Potassium 4.3 mmol/L (3.5-5.1); Sodium 136 mmol/L (137-145)
[2024-12-03 06:29] LABS: Glucose,Whole Blood 151 mg/dL (70-110)
[2024-12-03] MEDS: glipiZIDE 5 MG TAB PO SCH (08:57)
[2024-12-03] MEDS: amLODIPine 10 MG TAB PO SCH (08:57)
--- NOTE | 2024-12-03 09:58 | P.PN ---
Subjective This is a pleasant 69 years old male with past medical history of hypertension diabetes mellitus and dyslipidemia. Presents because of abdominal pain since yesterday about 9/10 in severity in the right upper quadrant and to the right side of the abdomen nonradiating feels just like dull pain increased with movement. He vomits each time he tries to eat anything other than water. He vomited 4 times today. He had some small bowel movement Patient denies chest pain or dyspnea. No neurological symptoms no dysuria or urgency He does not smoke drink or illicit drugs. No fever. Blood pressure is stable heart rate 83. WBC is elevated at 12,000 creatinine slightly up above baseline of 0.9-1.0 up to 1.3. Liver enzymes and INR were unremarkable. Urinalysis showing microscopic hematuria. CT of the abdomen and pelvis showing mild right hydronephrosis secondary to obstructive 6 mm calculus at the ureteropelvic junction. There are some pulmonary nodules up to 3 mm in the right lower lung. The radiologist recommend follow-up in 12 months. Patient informed and he agree. EKG showing A-fib with rate controlled around [address]-T changes. Patient was started on heparin drip and normal sinus 75 m/h. Admitted with cardiology team consult 12/03 Patient is awake alert He feels improved No pain today Creatinine is around the same 1.3 down to 1.29 He has evidence of hemodilution with WBC down to 7.[address] atelet count 195 Will increase his normal saline 75 up to 100 mL/h for another 24 hours Lisinopril 40 mg and Norvasc By art editor he remains on heparin drip for his A-fib with rate controlled around 88 not on beta-eamon or calcium channel eamon or amiodarone. Will check labs tomorrow Also will check Eliquis for current co-pay in case he is going to be discharged on Eliquis review of systems CONSTITUTIONAL: No fever, no malaise, no fatigue. HEENT: No recent visual problems or hearing problems. Denied any sore throat. CARDIOVASCULAR: No orthopnea, PND, no palpitations, no syncope. PULMONARY: No shortness of breath, no cough, no hemoptysis. GASTROINTESTINAL: No diarrhea, no nausea, no vomiting, Active Medications Generic Name Dose Route Start Last Admin Trade Name Freq PRN Reason Stop Dose Admin Amlodipine Besylate 10 mg 12/03/24 09:00 12/03/24 08:57 Amlodipine 10 Mg Tab PO 10 mg DAILY RANULFO Administration Atorvastatin Calcium 40 mg 12/03/24 21:00 Atorvastatin 40 Mg Tab PO HS [facility] Betamethasone Dipropionate 1 applic 12/02/24 17:18 Betamethasone Dipropionate 0.05% Cream 15 Gm Tube TOPICAL BID PRN scalp irritation Famotidine 20 mg 12/02/24 21:00 12/03/24 08:57 Famotidine 20 Mg/2 Ml Vial IV 20 mg Q12HR RANULFO Administration Glipizide 5 mg 12/03/24 09:00 12/03/24 08:57 Glipizide 5 Mg Tab PO 5 mg BID RANULFO Administration Heparin Sodium (Porcine) 0 unit 12/02/24 14:06 12/03/24 03:17 Heparin Sodium 1,000 Un/Ml (10ml Vl) IV 3,118 unit PER PROTOCOL PRN Administration Low PTT Protocol Heparin Sodium/Sodium Chloride 250 mls @ 10 mls/hr 12/02/24 14:15 12/03/24 09:07 25,000 unit/ Sodium Chloride IV 12.017 units/kg/hr .Q24H RANULFO 14.99 mls/hr Administration Protocol 8.017 UNITS/KG/HR Sodium Chloride 1,000 mls @ 100 mls/hr 12/03/24 10:00 Saline 0.9% IV .Q10H [facility] Lisinopril 40 mg 12/03/24 09:00 12/03/24 08:57 Lisinopril 20 Mg Tab PO 40 mg DAILY RANULFO Administration Morphine Sulfate 4 mg 12/02/24 14:04 12/03/24 03:27 Morphine Sulfate 4 Mg/Ml Syringe IV 4 mg Q4HR PRN Administration Severe Pain (Scale 7 to 10) Naloxone HCl 0.2 mg 12/02/24 14:04 Naloxone 0.4 Mg/Ml 1 Ml Vial IV Q2M PRN Opioid Reversal Ondansetron HCl 4 mg 12/02/24 14:04 12/03/24 01:12 Ondansetron 4 Mg/2 Ml Vial IVP 4 mg Q8HR PRN Administration Nausea And Vomiting Oxycodone/Acetaminophen 1 each 12/02/24 17:18 Oxycodone-Apap 5-325mg 1 Each Tab PO Q6H PRN Pain Objective - Vital Signs Vital signs: Vital Signs Temp 98.4 F 12/03/24 07:08 Pulse 71 12/03/24 08:00 Resp 15 12/03/24 07:08 BP 117/68 12/03/24 07:08 Pulse Ox 97 12/03/24 07:08 FiO2 Intake & Output 12/02/24 12/03/24 12/03/24 18:59 06:59 18:59 Intake Total 135.174 89.44 Balance 135.174 89.44 Weight 124.738 kg 124.738 kg Intake: Intake, IV Titration 135.174 89.44 Amount Heparin Sod,Pork in 0.45% 135.174 89.44 NaCl 25,000 unit In 0.45 % NaCl 1 250ml.bag @ 8. 017 UNITS/KG/HR 10 mls/hr IV .Q24H [facility] Rx#: [id number] Other: # Voids 1 - Exam GENERAL: The patient is alert and oriented x3, not in any acute distress. Well developed, well nourished. HEENT: Pupils are round and equally reacting to light. EOMI. No scleral icterus. No conjunctival pallor. Normocephalic, atraumatic. No pharyngeal erythema. No thyromegaly. CARDIOVASCULAR: S1 and S2 present. No murmurs, rubs, or gallops. PULMONARY: Chest is clear to auscultation, no wheezing , no crackles. -ABDOMEN: Soft, n right abdominal tenderness, no guarding or rebound tenderness, nondistended, normoactive bowel sounds. No palpable organomegaly. MUSCULOSKELETAL: No joint swelling or deformity. EXTREMITIES: No cyanosis, clubbing, or pedal edema. NEUROLOGICAL: Gross neurological examination did not reveal any focal deficits. SKIN: No rashes. no petechiae. - Labs CBC & Chem 7: 12/03/24 02:28 12/03/24 02:28 Labs: Abnormal Lab Results - Last 24 Hours (Table) 12/02/24 12/02/24 12/02/24 Range/Units 10:49 10:49 12:25 WBC 12.90 H (4.50-10.00) 10*3/uL RBC 4.39 L (4.40-5.60) 10*6/uL Hgb (13.0-17.0) g/dL Hct (39.6-50.0) % MCH 32.1 H (27.0-32.0) pg Neutrophils # 10.87 H (1.80-7.70) 10*3/uL Eosinophils # (0.04-0.35) 10*3/uL APTT (22.0-30.0) sec Sodium 133 L (137-145) mmol/L Carbon Dioxide 20 L (22-30) mmol/L Creatinine 1.31 H (0.66-1.25) mg/dL Glucose 191 H (74-99) mg/dL POC Glucose (mg/dL) (70-110) mg/dL Urine Ketones Trace H (Negative) Urine Blood Moderate H (Negative) Urine RBC 6 H (0-5) /hpf Urine Bacteria Occasional H (None) /hpf 12/02/24 12/03/24 12/03/24 Range/Units 19:54 02:28 02:28 WBC (4.50-10.00) 10*3/uL RBC 3.93 L (4.40-5.60) 10*6/uL Hgb 12.6 L (13.0-17.0) g/dL Hct 37.2 L (39.6-50.0) % MCH 32.1 H (27.0-32.0) pg Neutrophils # (1.80-7.70) 10*3/uL Eosinophils # 0.40 H (0.04-0.35) 10*3/uL APTT 31.4 H (22.0-30.0) sec Sodium 136 L (137-145) mmol/L Carbon Dioxide (22-30) mmol/L Creatinine 1.29 H (0.66-1.25) mg/dL Glucose 144 H (74-99) mg/dL POC Glucose (mg/dL) (70-110) mg/dL Urine Ketones (Negative) Urine Blood (Negative) Urine RBC (0-5) /hpf Urine Bacteria (None) /hpf 12/03/24 12/03/24 12/03/24 Range/Units 02:28 06:28 09:13 WBC (4.50-10.00) 10*3/uL RBC (4.40-5.60) 10*6/uL Hgb (13.0-17.0) g/dL Hct (39.6-50.0) % MCH (27.0-32.0) pg Neutrophils # (1.80-7.70) 10*3/uL Eosinophils # (0.04-0.35) 10*3/uL APTT 34.9 H 37.9 H (22.0-30.0) sec Sodium (137-145) mmol/L Carbon Dioxide (22-30) mmol/L Creatinine (0.66-1.25) mg/dL Glucose (74-99) mg/dL POC Glucose (mg/dL) 151 H (70-110) mg/dL Urine Ketones (Negative) Urine Blood (Negative) Urine RBC (0-5) /hpf Urine Bacteria (None) /hpf Assessment and Plan Assessment: New onset A-fib with controlled rate Right kidney stone 6 mm at the right ureteropelvic junction with mild right hydronephrosis Acute kidney injury, mild Lung nodule 3 mm in the right lower lung. Hypertension Hyperlipidemia Diabetes mellitus Obesity with BMI of 37.3. Plan: Continue with normal saline and increase rate to 100 mL/h Continue with heparin drip Monitor glucose. Hold metformin naproxen. Continue the glipizide. Pain management. Lisinopril Norvasc added by art editor Cardiac team consult Neurology team consult Labs and medication were reviewed.. Continue same treatment. Continue with symptomatic treatment. Resume home medication. Monitor labs and vitals. DVT and GI prophylaxis. Further recommendations as per clinical course of the patient DVT prophylaxis: heparin GI Prophylaxis: Pepcid Prognosis is guarded
[2024-12-03] MEDS: SODIUM CHLORIDE 0.9% 1,000 ML IV SCH (10:09)
--- NOTE | 2024-12-03 10:34 | P.CRDCN ---
History of Present Illness Consult date: 12/03/24 Reason for Consult (text): New onset atrial fibrillation History of present illness: This is a 69-year-old male patient with no previous cardiac history and does not follow with a parts counterperson. He has a past medical history of hyperlipidemia, diabetes mellitus type 2, hypertension. We have been asked to evaluate the patient for new onset of atrial fibrillation. Patient states that he came into the hospital due to right-sided abdominal pain and was found to have kidney stones. He was started on a heparin drip. He denies previous history of history of stones. Regarding atrial fibrillation. He does not feel any palpitations no rapid heartbeat. He has never been told in the past that he was in atrial fibrillation and he follows with Dr. Navas every 6 months as his PCP. Blood pressure 117/68, heart rate 80, pulse ox 97% on room air. Regarding abdominal pain, patient states that pain medications are controlling it for now. Regarding exercise, patient states that he rides a stationary bike for an hour and a half [address] Rojo recommended increasing the frequency but decreasing the length of time to 30 minutes. -EKG: Atrial fibrillation at 80 bpm -CT abdomen and pelvis with contrast: Mild right hydronephrosis secondary to obstructing 6 mm calculus in the ureteropelvic junction. Hepatic steatosis. Right lower lung nodules -Laboratory studies: WBC 7.6, hemoglobin 12.6, BUN 18, creatinine 1.29. Potas sium 4.3. Urinalysis with blood moderate. -Home cardiac medications: Amlodipine/lisinopril 10/40 mg daily, simvastatin 20 mg daily. - Review Of Systems: At the time of my exam: CONSTITUTIONAL: Denies fever or chills. HEENT: Denies blurred vision, vision changes, or eye pain. Denies hemoptysis CARDIOVASCULAR: Denies chest pain. Denies orthopnea. Denies PND. Denies palpitations RESPIRATORY: Denies shortness of breath. GASTROINTESTINAL: Denies abdominal pain. Denies nausea or vomiting. HEMATOLOGIC: Denies bleeding disorders. GENITOURINARY: Denies any blood in urine. SKIN: Denies puritis. Denies rash. Physical examination: Gen: This is 69-year-old male in no acute distress. VS: reviewed HEENT: Head is atraumatic, normocephalic. Pupils equal, round. Sclerae is anicteric. NECK: Supple. No JVD. LUNGS: Clear to auscultation. No wheezes or rhonchi. No intercostal retractions. HEART: Slightly irregular rate and rhythm. No murmur. ABDOMEN: Soft No tenderness. EXTREMITIES: No pedal edema. No calf tenderness. NEUROLOGICAL: Patient is awake, alert and oriented x3. Assessment: Paroxysmal atrial fibrillation, unknown onset, patient is asymptomatic Right kidney stone with mild right hydronephrosis Hypertension Hyperlipidemia Diabetes Lung nodules Plan: Resume patient's home cardiac medications No need for beta-eamon as patient's heart rate is intrinsically controlled Obtain 2-D echocardiogram and Doppler study to assess cardiac structure and function Patient encouraged to increase stationary bike frequency to daily but down to 30 minutes daily Patient will be started on Eliquis once cleared by urology that no surgical intervention is required Consider starting Farxiga 10 mg daily as an outpatient Patient is cleared for discharge from a cardiology perspective and will follow- up with Dr. Rojo in 2 weeks. Further recommendations to follow based upon clinical course Thank you kindly for this consultation. Nurse practitioner note has been reviewed, I agree with documented findings and plan of care. Patient was seen and examined. Past Medical History Past Medical History: Diabetes Mellitus, Hyperlipidemia, Hypertension History of Any Multi-Drug Resistant Organisms: None Reported Past Surgical History: Orthopedic Surgery Additional Past Surgical History / Comment(s): rt shoulder arthroscopy rotator cuff repair, Past Anesthesia/Blood Transfusion Reactions: No Reported Reaction Past Psychological History: No Psychological Hx Reported Smoking Status: Never smoker Past Alcohol Use History: Rare Past Drug Use History: None Reported Medications and Allergies Home Medications Medication Instructions Recorded Confirmed Type metFORMIN HCL [Glucophage] 500 mg PO BID 05/10/22 12/02/24 History Betamethasone Dipropionate 1 applic TOPICAL DAILY PRN 12/02/24 12/02/24 History [Betamethasone Dipropionate 0.05%] Fluocinonide 0.05% [Lidex 0.05% 1 applic TOPICAL BID PRN 12/02/24 12/02/24 History cream] Hydrocortisone Cream 1 applic TOPICAL BID PRN 12/02/24 12/02/24 History [Hydrocortisone 2.5% Cream] Naproxen [Naprosyn] 500 mg PO BID PRN 12/02/24 12/02/24 History Omeprazole 20 mg PO DAILY PRN 12/02/24 12/02/24 History Simvastatin [Zocor] 20 mg PO DAILY 12/02/24 12/02/24 History Triamcinolone 0.1% Ointment 1 applic TOPICAL BID PRN 12/02/24 12/02/24 History [Kenalog 0.1% Ointment] glipiZIDE [glipiZIDE ER] 10 mg PO DAILY 12/02/24 12/02/24 History oxyCODONE-APAP 5-325MG [Percocet 1 tab PO Q6H PRN 12/02/24 12/02/24 History 5-325 mg] Apixaban [Eliquis] 5 mg PO BID #60 tab 12/03/24 Rx Allergies Allergy/AdvReac Type Severity Reaction Status Date / Time No Known Allergies Allergy Verified 12/02/24 12:06 Physical Exam Vitals: Vital Signs Temp Pulse Pulse Resp BP BP Pulse Ox 12/03/24 07:08 98.4 F 80 15 117/68 97 12/03/24 00:30 99 F 95 16 126/80 98 12/02/24 23:42 97.8 F 81 17 136/67 96 12/02/24 21:00 67 17 128/79 96 12/02/24 20:00 85 12/02/24 16:17 79 20 135/76 98 12/02/24 10:10 97.6 F 83 20 166/98 98 Intake and Output 12/02/24 12/03/24 12/03/24 22:59 06:59 14:59 Intake Total 49.167 86.007 Balance 49.167 86.007 Intake: Intake, IV Titration 49.167 86.007 Amount Heparin Sod,Pork in 0.45% 49.167 86.007 NaCl 25,000 unit In 0.45 % NaCl 1 250ml.bag @ 8. 017 UNITS/KG/HR 10 mls/hr IV .Q24H [facility] Rx#: [id number] Other: # Voids 1 Weight 124.738 kg Results 12/03/24 02:28 12/03/24 02:28 Cardiac Enzymes 12/02/24 Range/Units 10:49 AST 28 (17-59) U/L Coagulation 12/02/24 12/02/24 12/03/24 Range/Units 14:23 19:54 02:28 PT 12.1 12.2 (10.0-12.5) sec APTT 24.5 31.4 H (22.0-30.0) sec 12/03/24 Range/Units 02:28 PT (10.0-12.5) sec APTT 34.9 H (22.0-30.0) sec CBC 12/02/24 12/03/24 Range/Units 10:49 02:28 WBC 12.90 H 7.66 (4.50-10.00) 10*3/uL RBC 4.39 L 3.93 L (4.40-5.60) 10*6/uL Hgb 14.1 12.6 L (13.0-17.0) g/dL Hct 40.3 37.2 L (39.6-50.0) % Plt Count 237 195 (140-440) 10*3/uL Comprehensive Metabolic Panel 12/02/24 12/03/24 Range/Units 10:49 02:28 Sodium 133 L 136 L (137-145) mmol/L Potassium 4.5 4.3 (3.5-5.1) mmol/L Chloride 101 104 (98-107) mmol/L Carbon Dioxide 20 L 23 (22-30) mmol/L BUN 17 18 (9-20) mg/dL Creatinine 1.31 H 1.29 H (0.66-1.25) mg/dL Glucose 191 H 144 H (74-99) mg/dL Calcium 9.4 8.9 (8.4-10.2) mg/dL AST 28 (17-59) U/L ALT 44 (4-49) U/L Alkaline Phosphatase 70 (38-126) U/L Total Protein 7.3 (6.3-8.2) g/dL Albumin 4.4 (3.5-5.0) g/dL Current Medications Generic Name Dose Route Start Last Admin Trade Name Freq PRN Reason Stop Dose Admin Betamethasone Dipropionate 1 applic 12/02/24 17:18 Betamethasone Dipropionate 0.05% Cream 15 Gm Tube TOPICAL BID PRN scalp irritation Famotidine 20 mg 12/02/24 21:00 12/02/24 20:44 Famotidine 20 Mg/2 Ml Vial IV 20 mg Q12HR RANULFO Administration Glipizide 5 mg 12/03/24 09:00 Glipizide 5 Mg Tab PO BID [facility] Heparin Sodium (Porcine) 0 unit 12/02/24 14:06 12/03/24 03:17 Heparin Sodium 1,000 Un/Ml (10ml Vl) IV 3,118 unit PER PROTOCOL PRN Administration Low PTT Protocol Sodium Chloride 1,000 mls @ 75 mls/hr 12/02/24 14:15 12/03/24 03:34 Saline 0.9% IV 75 mls/hr .[id number] RANULFO Administration Heparin Sodium/Sodium Chloride 250 mls @ 10 mls/hr 12/02/24 14:15 12/03/24 03:09 25,000 unit/ Sodium Chloride IV 12.017 units/kg/hr .Q24H RANULFO 14.99 mls/hr Titration Protocol 8.017 UNITS/KG/HR Morphine Sulfate 4 mg 12/02/24 14:04 12/03/24 03:27 Morphine Sulfate 4 Mg/Ml Syringe IV 4 mg Q4HR PRN Administration Severe Pain (Scale 7 to 10) Naloxone HCl 0.2 mg 12/02/24 14:04 Naloxone 0.4 Mg/Ml 1 Ml Vial IV Q2M PRN Opioid Reversal Ondansetron HCl 4 mg 12/02/24 14:04 12/03/24 01:12 Ondansetron 4 Mg/2 Ml Vial IVP 4 mg Q8HR PRN Administration Nausea And Vomiting Oxycodone/Acetaminophen 1 each 12/02/24 17:18 Oxycodone-Apap 5-325mg 1 Each Tab PO Q6H PRN Pain Intake and Output 12/02/24 12/03/24 12/03/24 22:59 06:59 14:59 Intake Total 49.167 86.007 Balance 49.167 86.007 Intake: Intake, IV Titration 49.167 86.007 Amount Heparin Sod,Pork in 0.45% 49.167 86.007 NaCl 25,000 unit In 0.45 % NaCl 1 250ml.bag @ 8. 017 UNITS/KG/HR 10 mls/hr IV .Q24H [facility] Rx#: [id number] Other: # Voids 1 Weight 124.738 kg 12/03/24 02:28 12/03/24 02:28
[2024-12-03 12:17] LABS: Glucose,Whole Blood 135 mg/dL (70-110)
[2024-12-03 15:26] LABS: Cholesterol 145.00 mg/dL (0.00-200.00); HDL Cholesterol 38.30 mg/dL (40.00-60.00); LDL Cholesterol,Calculated 75.9 mg/dL (0.0-131.0); Triglycerides 154.00 mg/dL (0.00-149.00); VLDL Calculation 30.80 mg/dL (5.00-40.00)
--- NOTE | 2024-12-03 16:49 | P.GSCN ---
History of Present Illness Consult date: 12/03/24 Reason for Consult: Right UPJ calculus Requesting physician: Jose Rafael E Sheet History of present illness: The patient is a 69-year-old male with no prior history of UTIs or urolithiasis. He experienced severe right upper quadrant and right sided abdominal pain on December 01, 2024. He described the pain as being dull and stated that it increased with movement. He presented to the ER yesterday and underwent a CT scan, rev ealing right hydronephrosis due to a 6 mm right UPJ calculus. CT scan shows 5 additional right renal calculi measuring up to 5 mm in size. He is also being treated with new onset atrial fibrillation. Review of Systems - Constitutional Denies chills, Denies fever - Gastrointestinal Reports nausea, Reports vomiting - Genitourinary Reports flank pain, Reports kidney stones, Denies dysuria, Denies hematuria Past Medical History Past Medical History: Diabetes Mellitus, Hyperlipidemia, Hypertension History of Any Multi-Drug Resistant Organisms: None Reported Past Surgical History: Orthopedic Surgery Additional Past Surgical History / Comment(s): rt shoulder arthroscopy rotator cuff repair, Past Anesthesia/Blood Transfusion Reactions: No Reported Reaction Past Psychological History: No Psychological Hx Reported Smoking Status: Never smoker Past Alcohol Use History: Rare Past Drug Use History: None Reported Medications and Allergies Home Medications Medication Instructions Recorded Confirmed Type metFORMIN HCL [Glucophage] 500 mg PO BID 05/10/22 12/02/24 History Betamethasone Dipropionate 1 applic TOPICAL DAILY PRN 12/02/24 12/02/24 History [Betamethasone Dipropionate 0.05%] Fluocinonide 0.05% [Lidex 0.05% 1 applic TOPICAL BID PRN 12/02/24 12/02/24 History cream] Hydrocortisone Cream 1 applic TOPICAL BID PRN 12/02/24 12/02/24 History [Hydrocortisone 2.5% Cream] Naproxen [Naprosyn] 500 mg PO BID PRN 12/02/24 12/02/24 History Omeprazole 20 mg PO DAILY PRN 12/02/24 12/02/24 History Simvastatin [Zocor] 20 mg PO DAILY 12/02/24 12/02/24 History Triamcinolone 0.1% Ointment 1 applic TOPICAL BID PRN 12/02/24 12/02/24 History [Kenalog 0.1% Ointment] glipiZIDE [glipiZIDE ER] 10 mg PO DAILY 12/02/24 12/02/24 History oxyCODONE-APAP 5-325MG [Percocet 1 tab PO Q6H PRN 12/02/24 12/02/24 History 5-325 mg] Apixaban [Eliquis] 5 mg PO BID #60 tab 12/03/24 Rx Allergies Allergy/AdvReac Type Severity Reaction Status Date / Time No Known Allergies Allergy Verified 12/02/24 12:06 Surgical - Exam Vital Signs Temp Pulse Resp BP Pulse Ox 97.6 F 83 20 166/98 98 12/02/24 10:10 12/02/24 10:10 12/02/24 10:10 12/02/24 10:10 12/02/24 10:10 - General well developed, well nourished, no distress - Respiratory normal respiratory effort - Abdomen Soft, non-distended, no mass. Mild right lower quadrant tenderness, no guarding or rebound. - Genitourinary normal penis with no external lesions, testicles non-tender - Psychiatric oriented to time, oriented to person, oriented to place, speech is normal, memory intact Results - Labs 12/03/24 02:28 12/03/24 02:28 Abnormal Lab Results - Last 24 Hours (Table) 12/02/24 12/03/24 12/03/24 Range/Units 19:54 02:28 02:28 RBC 3.93 L (4.40-5.60) 10*6/uL Hgb 12.6 L (13.0-17.0) g/dL Hct 37.2 L (39.6-50.0) % MCH 32.1 H (27.0-32.0) pg Eosinophils # 0.40 H (0.04-0.35) 10*3/uL APTT 31.4 H (22.0-30.0) sec Sodium 136 L (137-145) mmol/L Creatinine 1.29 H (0.66-1.25) mg/dL Glucose 144 H (74-99) mg/dL POC Glucose (mg/dL) (70-110) mg/dL Triglycerides (0.00-149.00) mg/dL HDL Cholesterol (40.00-60.00) mg/dL 12/03/24 12/03/24 12/03/24 Range/Units 02: 06:28 09:13 RBC (4.40-5.60) 10*6/uL Hgb (13.0-17.0) g/dL Hct (39.6-50.0) % MCH (27.0-32.0) pg Eosinophils # (0.04-0.35) 10*3/uL APTT 34.9 H 37.9 H (22.0-30.0) sec Sodium (137-145) mmol/L Creatinine (0.66-1.25) mg/dL Glucose (74-99) mg/dL POC Glucose (mg/dL) 151 H (70-110) mg/dL Triglycerides (0.00-149.00) mg/dL HDL Cholesterol (40.00-60.00) mg/dL 12/03/24 12/03/24 Range/Units 09:13 12:15 RBC (4.40-5.60) 10*6/uL Hgb (13.0-17.0) g/dL Hct (39.6-50.0) % MCH (27.0-32.0) pg Eosinophils # (0.04-0.35) 10*3/uL APTT (22.0-30.0) sec Sodium (137-145) mmol/L Creatinine (0.66-1.25) mg/dL Glucose (74-99) mg/dL POC Glucose (mg/dL) 135 H (70-110) mg/dL Triglycerides 154.00 H (0.00-149.00) mg/dL HDL Cholesterol 38.30 L (40.00-60.00) mg/dL Diabetes panel 12/03/24 12/03/24 Range/Units 02: 09:13 Sodium 136 L (137-145) mmol/L Potassium 4.3 (3.5-5.1) mmol/L Chloride 104 (98-107) mmol/L Carbon Dioxide 23 (22-30) mmol/L BUN 18 (9-20) mg/dL Creatinine 1.29 H (0.66-1.25) mg/dL Glucose 144 H (74-99) mg/dL Calcium 8.9 (8.4-10.2) mg/dL Triglycerides 154.00 H (0.00-149.00) mg/dL HDL Cholesterol 38.30 L (40.00-60.00) mg/dL Thyroid panel 12/03/24 Range/Units 09:13 TSH 1.010 (0.465-4.680) mIU/L Calcium panel 12/03/24 Range/Units 02:28 Calcium 8.9 (8.4-10.2) mg/dL Pituitary panel 12/03/24 12/03/24 Range/Units 02:28 09:13 Sodium 136 L (137-145) mmol/L Potassium 4.3 (3.5-5.1) mmol/L Chloride 104 (98-107) mmol/L Carbon Dioxide 23 (22-30) mmol/L BUN 18 (9-20) mg/dL Creatinine 1.29 H (0.66-1.25) mg/dL Glucose 144 H (74-99) mg/dL Calcium 8.9 (8.4-10.2) mg/dL TSH 1.010 (0.465-4.680) mIU/L Adrenal panel 12/03/24 Range/Units 02:28 Sodium 136 L (137-145) mmol/L Potassium 4.3 (3.5-5.1) mmol/L Chloride 104 (98-107) mmol/L Carbon Dioxide 23 (22-30) mmol/L BUN 18 (9-20) mg/dL Creatinine 1.29 H (0.66-1.25) mg/dL Glucose 144 H (74-99) mg/dL Calcium 8.9 (8.4-10.2) mg/dL - Imaging CT scan - abdomen: report reviewed, image reviewed Assessment and Plan (1) Calculus of ureter Current Visit: Yes Status: Acute Code(s): N20.1 - CALCULUS OF URETER SNOMED Code(s): 31454302 (2) Calculus of kidney Current Visit: Yes Status: Acute Code(s): N20.0 - CALCULUS OF KIDNEY SNOMED Code(s): 36715739 (3) Hydronephrosis with renal and ureteral calculous obstruction Current Visit: Yes Status: Acute Code(s): N13.2 - HYDRONEPHROSIS WITH RENAL AND URETERAL CALCULOUS OBSTRUCTION SNOMED Code(s): 488677932 Plan: The patient continues to experience intractable pain. We discussed surgical treatment options for kidney stones, and we have jointly decided that he will undergo cystoscopy with right ureteral stent insertion tomorrow. I then antic ipate he would be comfortable enough to be discharged home, and arrangements would be made for him to undergo a secondary procedure in 3 to 4 weeks, consisting of cystoscopy, right ureteral stent removal, right ureteroscopy with laser lithotripsy and stone basketing to remove both the ureteral calculus as well as the renal calculi. This is all been reviewed in detail with the patient, including potential risks which include anesthesia, bleeding, infection, inability to place the stent, and ureteral injury. Time with Patient: Greater than 30
[2024-12-03 17:37] LABS: Glucose,Whole Blood 158 mg/dL (70-110)
[2024-12-03 20:38] LABS: Glucose,Whole Blood 106 mg/dL (70-110)
[2024-12-03] MEDS: ATORVASTATIN 40 MG TAB PO SCH (21:12)
[2024-12-04 10:14] LABS: Basophils # (A) 0.09 X 10*3/uL (0.00-0.10); Basophils % (A) 1.1 %; Eosinophils # (A) 0.43 X 10*3/uL (0.04-0.35); Eosinophils % (A) 5.2 %; HCT 36.9 % (39.6-50.0); HGB 12.1 g/dL (13.0-17.0); Immature Grans, Automated 0.40 %; Lymphocytes # (A) 1.82 X 10*3/uL (0.90-5.00); Lymphocytes % (A) 21.9 %; MCH 31.9 pg (27.0-32.0); MCHC 32.8 g/dL (32.0-37.0); MCV 97.4 FL (80.0-97.0); Monocytes # (A) 0.74 X 10*3/uL (0.20-1.00); Monocytes % (A) 8.9 %; NRBC Per 100 WBC 0 X 10*3/uL (0.00-0.01); Neutrophils # (A) 5.21 X 10*3/uL (1.80-7.70); Neutrophils % (A) 62.5 %; Platelet Count 189 X 10*3/uL (140-440); RBC 3.79 X 10*6/uL (4.40-5.60); RDW 12.6 % (11.5-14.5); WBC 8.32 X 10*3/uL (4.50-10.00)
[2024-12-04 10:31] LABS: Anion Gap 10.90 mmol/L (4.00-12.00); BUN/Creat Ratio 11.73 Ratio (12.00-20.00); Blood Urea Nitrogen 12.9 mg/dL (9.0-27.0); Calcium 8.4 mg/dL (8.7-10.3); Carbon Dioxide 22.1 mmol/L (21.6-31.8); Chloride 106 mmol/L (96-109); Glucose 152 mg/dL (70-110); Potassium 4.4 mmol/L (3.5-5.5); Sodium 139 mmol/L (135-145)
--- NOTE | 2024-12-04 11:24 | P.PN ---
Subjective Progress Note Date: 12/04/24 Reason for Consult (text): New onset atrial fibrillation History of present illness: This is a 69-year-old male patient with no previous cardiac history and does not follow with a hospitality specialist. He has a past medical history of hyperlipidemia, diabetes mellitus type 2, hypertension. We have been asked to evaluate the patient for new onset of atrial fibrillation. Patient states that he came into the hospital due to right-sided abdominal pain and was found to have kidney stones. He was started on a heparin drip. He denies previous history of hi story of stones. Regarding atrial fibrillation. He does not feel any palpitations no rapid heartbeat. He has never been told in the past that he was in atrial fibrillation and he follows with Dr. Navas every 6 months as his PCP. Blood pressure 117/68, heart rate 80, pulse ox 97% on room air. Regarding abdominal pain, patient states that pain medications are controlling it for now. Regarding exercise, patient states that he rides a stationary bike for an hour and a half [address] Rojo recommended increasing the frequency but decreasing the length of time to 30 minutes. -EKG: Atrial fibrillation at 80 bpm -CT abdomen and pelvis with contrast: Mild right hydronephrosis secondary to obstructing 6 mm calculus in the ureteropelvic junction. Hepatic steatosis. Right lower lung nodules -Laboratory studies: WBC 7.6, hemoglobin 12.6, BUN 18, creatinine 1.29. Potassium 4.3. Urinalysis with blood moderate. -Home cardiac medications: Amlodipine/lisinopril 10/40 mg daily, simvastatin 20 mg daily. 12/04/2024 Patient seen and examined. Patient remains on a heparin drip. He has been seen by urology with plan for cystoscopy with right ureteral stent insertion today. Plan will be to start patient on Eliquis following the procedure. Blood pressure 131/88, heart rate 92, pulse ox 97% on room air. Repeat blood work reveals hemoglobin 12.1, creatinine 1.1. Patient remains in atrial fibrillation with controlled ventricular rate. Physical examination: Gen: This is 69-year-old male in no acute distress. VS: reviewed HEENT: Head is atraumatic, normocephalic. Pupils equal, round. Sclerae is anicteric. NECK: Supple. No JVD. LUNGS: Clear to auscultation. No wheezes or rhonchi. No intercostal retractions. HEART: Slightly irregular rate and rhythm. No murmur. ABDOMEN: Soft No tenderness. EXTREMITIES: No pedal edema. No calf tenderness. NEUROLOGICAL: Patient is awake, alert and oriented x3. Assessment: Paroxysmal atrial fibrillation, unknown onset, patient is asymptomatic Right kidney stone with mild right hydronephrosis Hypertension Hyperlipidemia Diabetes Lung nodules Plan: Continue patient's home cardiac medications No need for beta-eamon as patient's heart rate is intrinsically controlled Continue heparin drip. Patient will be started on Eliquis 5 mg twice daily once cleared by urology. No need to obtain echocardiogram during this hospitalization Patient encouraged to increase stationary bike frequency to daily but down to 30 minutes daily Patient will be started on Eliquis once cleared by urology that no surgical intervention is required Consider starting Farxiga 10 mg daily as an outpatient Patient is cleared for discharge from a cardiology perspective and will follow- up with Dr. Rojo in 2 weeks. Further recommendations to follow based upon clinical course Nurse practitioner note has been reviewed, I agree with documented findings and plan of care. Patient was seen and examined. Objective - Vital Signs Vital signs: Vital Signs Temp 98.4 F 12/04/24 03:59 Pulse 95 12/04/24 03:59 Resp 18 12/04/24 03:59 BP 113/70 12/04/24 03:59 Pulse Ox 95 12/04/24 03:59 FiO2 Intake & Output 12/03/24 12/04/24 12/04/24 18:59 06:59 18:59 Intake Total 365.350 92.09 Balance 365.350 92.09 Intake: Intake, IV Titration 247.350 92.09 Amount Heparin Sod,Pork in 0.45% 247.350 92.09 NaCl 25,000 unit In 0.45 % NaCl 1 250ml.bag @ 8. 017 UNITS/KG/HR 10 mls/hr IV .Q24H RANULFO Rx#: [id number] Oral 118 Other: # Voids 2 - Labs CBC & Chem 7: 12/04/24 06:12 12/04/24 06:12 Labs: Abnormal Lab Results - Last 24 Hours (Table) 12/03/24 12/03/24 12/03/24 Range/Units 09:13 09:13 09:13 APTT 37.9 H (22.0-30.0) sec POC Glucose (mg/dL) (70-110) mg/dL Hemoglobin A1c 6.7 H (<=6.0) % Triglycerides 154.00 H (0.00-149.00) mg/dL HDL Cholesterol 38.30 L (40.00-60.00) mg/dL 12/03/24 12/03/24 12/03/24 Range/Units 12:15 16:42 17:33 APTT 62.2 H (22.0-30.0) sec POC Glucose (mg/dL) 135 H 158 H (70-110) mg/dL Hemoglobin A1c (<=6.0) % Triglycerides (0.00-149.00) mg/dL HDL Cholesterol (40.00-60.00) mg/dL 12/04/24 Range/Units 06:12 APTT 48.1 H (22.0-30.0) sec POC Glucose (mg/dL) (70-110) mg/dL Hemoglobin A1c (<=6.0) % Triglycerides (0.00-149.00) mg/dL HDL Cholesterol (40.00-60.00) mg/dL
[2024-12-04 12:40] LABS: Glucose,Whole Blood 125 mg/dL (70-110)
[2024-12-04 14:57] LABS: Glucose,Whole Blood 111 mg/dL (70-110)
[2024-12-04] MEDS: DEXAMETHASONE SOD PHOSPHATE 4 MG/ML 1 ML VIAL IVP STA (15:10)
[2024-12-04] MEDS: LACTATED RINGERS 1,000 ML BAG IV STA (15:10)
[2024-12-04] MEDS ORDERED: MIDAZOLAM 2 MG/2 ML VIAL ONE (16:40)
[2024-12-04] MEDS ORDERED: fentaNYL (PF) 50 MCG/ML 2 ML AMP ONE (16:40)
[2024-12-04] MEDS ORDERED: PROPOFOL 10 MG/ML 20 ML VIAL IV ONE (16:40)
[2024-12-04] MEDS: SODIUM CHLORIDE 0.9% 1,000 ML IV ONE (16:44)
--- NOTE | 2024-12-04 17:11 | P.OP ---
Date of Procedure: 12/04/24 Preoperative Diagnosis: Right hydronephrosis secondary to right ureteral calculus Postoperative Diagnosis: Same Procedure(s) Performed: Cystoscopy, right ureteral stent insertion Anesthesia: MAC Surgeon: Marbin Butler Estimated Blood Loss (ml): 0 IV fluids (ml): 500 Pathology: none sent Condition: stable Disposition: PACU Indications for Procedure: The patient is a 69-year-old male with no prior history of UTIs or urolithiasis. He experienced severe right upper quadrant and right sided abdominal pain on December 01, 2024. He described the pain as being dull and stated that it increased with movement. He presented to the ER yesterday and underwent a CT scan, revealing right hydronephrosis due to a 6 mm right UPJ calculus. CT scan shows 5 additional right renal calculi measuring up to 5 mm in size. He now comes for insertion of right ureteral stent. Operative Findings: Successful right ureteral stent insertion resulting in relief of ureteral obstruction. Description of Procedure: The patient was taken to the operating room and placed in the dorsolithotomy position, with legs supported in Jonathon stirrups. The external genitalia was prepped and draped sterilely. The 30 lens was used to introduce the 22-Kittitian Stortz cystoscopic sheath through the urethra and into the bladder under direct vision. The prostatic urethra showed evidence of mild lateral lobe enlargement. The bladder was examined in its entirety. Both ureteral orifices were of normal anatomic location and configuration. No tumors or foreign bodies were seen. A 0.035 inch Glidewire was passed through the cystoscope. The right ureteral orifice was cannulated, and the Glidewire was slowly advanced up to the right proximal ureteral calculus, where the radiopaque calculus was impacted. With some manipulation, it was possible to advance the Glidewire beyond the calculus and up to the renal pelvis. A 26 cm, 6-Kittitian double-J ureteral stent was placed over the wire. Proper stent positioning was verified fluoro scopically and endoscopically. Following stent placement, there was evidence of a "hydronephrotic christie". The bladder was emptied and the cystoscope removed. The patient tolerated the procedure well and was taken to the recovery room in stable condition.
--- NOTE | 2024-12-04 17:24 | FL ---
EXAMINATION TYPE: FL guidance operating room Intraoperative/procedural fluoroscopic services were pro vided. CLINICAL INDICATION:Male, 69 years old with history of RIGHT URETERAL STENT INSERTION; , [facility] FINDINGS: Fluoroscopic images demonstrating right ureteral stent insertion. No radiographic evidence for compli cation. Total fluoroscopy time is 13.2 seconds. DAP: [id number] [id number] Please see the operative/procedural note for further details. [facility], , 12/04/2024 5:22 PM
[2024-12-04 17:42] LABS: Glucose,Whole Blood 141 mg/dL (70-110)
--- NOTE | 2024-12-04 19:14 | P.PN ---
Subjective This is a pleasant 69 years old male with past medical history of hypertension diabetes mellitus and dyslipidemia. Presents because of abdominal pain since yesterday about 9/ in severity in the right upper quadrant and to the right side of the abdomen nonradiating feels just like dull pain increased with movement. He vomits each time he tries to eat anything other than water. He vomited 4 times today. He had some small bowel movement Patient denies chest pain or dyspnea. No neurological symptoms no dysuria or urgency He does not smoke drink or illicit drugs. No fever. Blood pressure is stable heart rate 83. WBC is elevated at 12,000 creatinine slightly up above baseline of 0.9-1.0 up to 1.3. Liver enzymes and INR were unremarkable. Urinalysis showing microscopic hematuria. CT of the abdomen and pelvis showing mild right hydronephrosis secondary to obstructive 6 mm calculus at the ureteropelvic junction. There are some pulmonary nodules up to 3 mm in the right lower lung. The radiologist recommend follow-up in 12 months. Patient informed and he agree. EKG showing A-fib with rate controlled around [address]-T changes. Patient was started on heparin drip and normal sinus 75 m/h. Admitted with cardiology team consult 12/03 Patient is awake alert He feels improved No pain today Creatinine is around the same 1.3 down to 1.29 He has evidence of hemodilution with WBC down to 7.[address] atelet count 195 Will increase his normal saline 75 up to 100 mL/h for another 24 hours Lisinopril 40 mg and Norvasc By roll up helper he remains on heparin drip for his A-fib with rate controlled around 88 not on beta-eamon or calcium channel eamon or amiodarone. Will check labs tomorrow Also will check Eliquis for current co-pay in case he is going to be discharged on Eliquis 12/04 Patient is awake alert and oriented He was admitted for A-fib but rate is controlled evaluated by roll up helper and cleared for discharge on Eliquis. Co-pay for Eliquis is $40 per month, patient and at bedside informed and agreeable with the co-pay and he told me he cannot afford it. Risk and benefit explained for him in details and he verbalized understanding acceptance. Patient was cleared for discharge by roll up helper Patient also was going for cystoscopy today with his urologist. He is status p ost right ureteral stent placement for his right ureteral calculus and mild hydronephrosis. Postoperatively we will going to check with urology service to see if he is cleared for discharge today or tomorrow. Other than hide patient doing well and plan discussed with him and is agreeable. He denies any other new complaint. Patient told me he can go home today or tomorrow once cleared by urologist as he feels improved. Discussed with staff in details review of systems CONSTITUTIONAL: No fever, no malaise, no fatigue. HEENT: No recent visual problems or hearing problems. Denied any sore throat. CARDIOVASCULAR: No orthopnea, PND, no palpitations, no syncope. PULMONARY: No shortness of breath, no cough, no hemoptysis. GASTROINTESTINAL: No diarrhea, no nausea, no vomiting, Active Medications Generic Name Dose Route Start Last Admin Trade Name Freq PRN Reason Stop Dose Admin Amlodipine Besylate 10 mg 12/03/24 09:00 12/04/24 09:09 Amlodipine 10 Mg Tab PO 10 mg DAILY RANULFO Administration Atorvastatin Calcium 40 mg 12/03/24 21:00 12/03/24 21:12 Atorvastatin 40 Mg Tab PO 40 mg HS RANULFO Administration Betamethasone Dipropionate 1 applic 12/02/24 17:18 Betamethasone Dipropionate 0.05% Cream 15 Gm Tube TOPICAL BID PRN scalp irritation Famotidine 20 mg 12/02/24 21:00 12/04/24 09:09 Famotidine 20 Mg/2 Ml Vial IV 20 mg Q12HR RANULFO Administration Glipizide 5 mg 12/03/24 09:00 12/04/24 10:04 Glipizide 5 Mg Tab PO 5 mg BID RANULFO Administration Heparin Sodium (Porcine) 0 unit 12/02/24 14:06 12/03/24 10:25 Heparin Sodium 1,000 Un/Ml (10ml Vl) IV 3,125 unit PER PROTOCOL PRN Administration Low PTT Protocol Heparin Sodium/Sodium Chloride 250 mls @ 10 mls/hr 12/02/24 14:15 12/04/24 18:38 25,000 unit/ Sodium Chloride IV 14.02 units/kg/hr .Q24H RANULFO 17.488 mls/hr Titration Protocol 8.017 UNITS/KG/HR Sodium Chloride 1,000 mls @ 100 mls/hr 12/03/24 10:00 12/04/24 18:46 Saline 0.9% IV 100 mls/hr .Q10H RANULFO Administration Lisinopril 40 mg 12/03/24 09:00 12/04/24 09:08 Lisinopril 20 Mg Tab PO 40 mg DAILY RANULFO Administration Morphine Sulfate 4 mg 12/02/24 14:04 12/04/24 09:09 Morphine Sulfate 4 Mg/Ml Syringe IV 4 mg Q4HR PRN Administration Severe Pain (Scale 7 to 10) Naloxone HCl 0.2 mg 12/02/24 14:04 Naloxone 0.4 Mg/Ml 1 Ml Vial IV Q2M PRN Opioid Reversal Ondansetron HCl 4 mg 12/02/24 14:04 12/04/24 15:11 Ondansetron 4 Mg/2 Ml Vial IVP 4 mg Q8HR PRN Administration Nausea And Vomiting Oxycodone/Acetaminophen 1 each 12/02/24 17:18 Oxycodone-Apap 5-325mg 1 Each Tab PO Q6H PRN Pain Objective - Vital Signs Vital signs: Vital Signs Temp 98.2 F 12/04/24 18:12 Pulse 68 12/04/24 18:12 Resp 17 12/04/24 18:12 BP 129/76 12/04/24 18:12 Pulse Ox 98 12/04/24 18:12 FiO2 Intake & Output 12/04/24 12/04/24 12/05/24 06:59 18:59 06:59 Intake Total 92.09 2778.847 Output Total 0 Balance 92.09 2778.847 Weight 124.738 kg Intake: IV 550 Intake, IV Titration 92.09 188.847 Amount Heparin Sod,Pork in 0.45% 92.09 188.847 NaCl 25,000 unit In 0.45 % NaCl 1 250ml.bag @ 8. 017 UNITS/KG/HR 10 mls/hr IV .Q24H RANULFO Rx#: [id number] Oral 2039 Output: Estimated Blood Loss 0 Other: # Voids 2 2 - Exam GENERAL: The patient is alert and oriented x3, not in any acute distress. Well developed, well nourished. HEENT: Pupils are round and equally reacting to light. EOMI. No scleral icterus. No conjunctival pallor. Normocephalic, atraumatic. No pharyngeal erythema. No thyromegaly. CARDIOVASCULAR: S1 and S2 present. No murmurs, rubs, or gallops. PULMONARY: Chest is clear to auscultation, no wheezing , no crackles. -ABDOMEN: Soft, n right abdominal tenderness, no guarding or rebound tenderness, nondistended, normoactive bowel sounds. No palpable organomegaly. MUSCULOSKELETAL: No joint swelling or deformity. EXTREMITIES: No cyanosis, clubbing, or pedal edema. NEUROLOGICAL: Gross neurological examination did not reveal any focal deficits. SKIN: No rashes. no petechiae. - Labs CBC & Chem 7: 12/04/24 06:12 12/04/24 06:12 Labs: Abnormal Lab Results - Last 24 Hours (Table) 12/04/24 12/04/24 12/04/24 Range/Units 06:12 06:12 06:12 RBC 3.79 L (4.40-5.60) X 10*6/uL Hgb 12.1 L (13.0-17.0) g/dL Hct 36.9 L (39.6-50.0) % MCV 97.4 H (80.0-97.0) FL Eosinophils # 0.43 H (0.04-0.35) X 10*3/uL APTT 48.1 H (22.0-30.0) sec BUN/Creatinine Ratio 11.73 L (12.00-20.00) Ratio Glucose 152 H (70-110) mg/dL POC Glucose (mg/dL) (70-110) mg/dL Calcium 8.4 L (8.7-10.3) mg/dL 12/04/24 12/04/24 12/04/24 Range/Units 12:34 14:54 17:40 RBC (4.40-5.60) X 10*6/uL Hgb (13.0-17.0) g/dL Hct (39.6-50.0) % MCV (80.0-97.0) FL Eosinophils # (0.04-0.35) X 10*3/uL APTT (22.0-30.0) sec BUN/Creatinine Ratio (12.00-20.00) Ratio Glucose (70-110) mg/dL POC Glucose (mg/dL) 125 H 111 H 141 H (70-110) mg/dL Calcium (8.7-10.3) mg/dL Assessment and Plan Assessment: New onset A-fib with controlled rate. Cleared by roll up helper for discharge Right kidney stone 6 mm at the right ureteropelvic junction with mild right hydronephrosis. Status post cystoscopy and right ureteral stent placement. Today postop day #0 Acute kidney injury, mild Lung nodule 3 mm in the right lower lung. Hypertension Hyperlipidemia Diabetes mellitus Obesity with BMI of 37.3. Plan: Continue with normal saline and increase rate to 100 mL/h Continue with heparin drip. Once cleared by neurologist will be switched and Eliquis and consider for discharge Monitor glucose. Hold metformin naproxen. Continue the glipizide. Pain management. Lisinopril Norvasc added by roll up helper Cardiac team consult. Who cleared the patient for discharge urology team consult Labs and medication were reviewed.. Continue same treatment. Continue with symptomatic treatment. Resume home medication. Monitor labs and vitals. DVT and GI prophylaxis. Further recommendations as per clinical course of the patient DVT prophylaxis: heparin GI Prophylaxis: Pepcid Prognosis is guarded Possible discharge today or tomorrow once cleared by urologist
[2024-12-04 20:30] LABS: Glucose,Whole Blood 208 mg/dL (70-110)
[2024-12-04] MEDS: APIXABAN 5 MG TAB PO SCH (21:06)
[2024-12-05 03:13] VITALS: TEMP 97.7
[2024-12-05 06:39] LABS: Glucose,Whole Blood 133 mg/dL (70-110)
[2024-12-05 07:55] VITALS: BP 134/80; PULSE 80; RESP 17
--- NOTE | 2024-12-05 09:02 | P.PN ---
Subjective Progress Note Date: 12/05/24 Principal diagnosis: Right hydronephrosis secondary to right proximal ureteral calculus The patient experienced right renal colic due to a 6 mm UPJ calculus. His symptoms were intractable, and he thus underwent cystoscopy with right ureteral stent insertion in December 04, 2024. He feels markedly better today. He denies dysuria, hematuria, And flank pain. Objective - Vital Signs Vital signs: Vital Signs Temp 97.7 F 12/05/24 07:01 Pulse 80 12/05/24 07:01 Resp 17 12/05/24 07:01 BP 134/80 12/05/24 07:01 Pulse Ox 98 12/05/24 07:01 FiO2 Intake & Output 12/04/24 12/05/24 12/05/24 18:59 06:59 18:59 Intake Total 2778.847 Output Total 0 Balance 2778.847 Weight 124.738 kg Intake: IV 550 Intake, IV Titration 188.847 Amount Heparin Sod,Pork in 0.45% 188.847 NaCl 25,000 unit In 0.45 % NaCl 1 250ml.bag @ 8. 017 UNITS/KG/HR 10 mls/hr IV .Q24H RANULFO Rx#: [id number] Oral 2039 Output: Estimated Blood Loss 0 Other: # Voids 2 2 - Constitutional General appearance: Present: average body habitus, cooperative, no acute dis tress - Psychiatric Psychiatric: Present: A&O x's 3 - Labs CBC & Chem 7: 12/04/24 06:12 12/04/24 06:12 Labs: Abnormal Lab Results - Last 24 Hours (Table) 12/04/24 12/04/24 12/04/24 Range/Units 06:12 06:12 12:34 RBC 3.79 L (4.40-5.60) X 10*6/uL Hgb 12.1 L (13.0-17.0) g/dL Hct 36.9 L (39.6-50.0) % MCV 97.4 H (80.0-97.0) FL Eosinophils # 0.43 H (0.04-0.35) X 10*3/uL BUN/Creatinine Ratio 11.73 L (12.00-20.00) Ratio Glucose 152 H (70-110) mg/dL POC Glucose (mg/dL) 125 H (70-110) mg/dL Calcium 8.4 L (8.7-10.3) mg/dL 12/04/24 12/04/24 12/04/24 Range/Units 14:54 17:40 20:28 RBC (4.40-5.60) X 10*6/uL Hgb (13.0-17.0) g/dL Hct (39.6-50.0) % MCV (80.0-97.0) FL Eosinophils # (0.04-0.35) X 10*3/uL BUN/Creatinine Ratio (12.00-20.00) Ratio Glucose (70-110) mg/dL POC Glucose (mg/dL) 111 H 141 H 208 H (70-110) mg/dL Calcium (8.7-10.3) mg/dL 12/05/24 Range/Units 06:38 RBC (4.40-5.60) X 10*6/uL Hgb (13.0-17.0) g/dL Hct (39.6-50.0) % MCV (80.0-97.0) FL Eosinophils # (0.04-0.35) X 10*3/uL BUN/Creatinine Ratio (12.00-20.00) Ratio Glucose (70-110) mg/dL POC Glucose (mg/dL) 133 H (70-110) mg/dL Calcium (8.7-10.3) mg/dL Assessment and Plan (1) Calculus of ureter Current Visit: Yes Status: Acute Code(s): N20.1 - CALCULUS OF URETER SNOMED Code(s): 56513717 (2) Calculus of kidney Current Visit: Yes Status: Acute Code(s): N20.0 - CALCULUS OF KIDNEY S NOMED Code(s): 73350766 (3) Hydronephrosis with renal and ureteral calculous obstruction Current Visit: Yes Status: Acute Code(s): N13.2 - HYDRONEPHROSIS WITH RENAL AND URETERAL CALCULOUS OBSTRUCTION SNOMED Code(s): 895429733 Plan: Patient is urologically stable for discharge. Arrangements will be made for him to undergo cystoscopy, right ureteral stent removal, and ureteroscopic removal of the UPJ and renal calculi as an outpatient. Per Dr. Rojo, his anticoagulants may be held perioperatively.
--- NOTE | 2024-12-05 10:25 | P.PN ---
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 He has a past medical history of hyperlipidemia, diabetes mellitus type 2, hypertension. We have been asked to evaluate the patient for new onset of atrial fibrillation. Patient states that he came into the hospital due to right-sided abdominal pain and was found to have kidney stones. He was started on a heparin drip. He denies previous history of hi story of stones. Regarding atrial fibrillation. He does not feel any palpitations no rapid heartbeat. He has never been told in the past that he was in atrial fibrillation and he follows with Dr. Navas every 6 months as his PCP. Blood pressure 117/68, heart rate 80, pulse ox 97% on room air. Regarding abdominal pain, patient states that pain medications are controlling it for now. Regarding exercise, patient states that he rides a stationary bike for an hour and a half [address] Rojo recommended increasing the frequency but decreasing the length of time to 30 minutes. -EKG: Atrial fibrillation at 80 bpm -CT abdomen and pelvis with contrast: Mild right hydronephrosis secondary to obstructing 6 mm calculus in the ureteropelvic junction. Hepatic steatosis. Right lower lung nodules -Laboratory studies: WBC 7.6, hemoglobin 12.6, BUN 18, creatinine 1.29. Potassium 4.3. Urinalysis with blood moderate. -Home cardiac medications: Amlodipine/lisinopril 10/40 mg daily, simvastatin 20 mg daily. 12/04/2024 Patient seen and examined. Patient remains on a heparin drip. He has been seen by urology with plan for cystoscopy with right ureteral stent insertion today. Plan will be to start patient on Eliquis following the procedure. Blood pressure 131/88, heart rate 92, pulse ox 97% on room air. Repeat blood work reveals hemoglobin 12.1, creatinine 1.1. Patient remains in atrial fibrillation with controlled ventricular rate. 12/05/2024 Patient seen and examined. Yesterday, patient underwent cystoscopy and right ureteral stent placement. Noted that his heart rate is running in the 90s now. No plan for beta-eamon. Patient denies chest pains or palpitations. He was started on Eliquis last evening. Physical examination: Gen: This is 69-year-old male in no acute distress. VS: reviewed HEENT: Head is atraumatic, normocephalic. Pupils equal, round. Sclerae is anicteric. NECK: Supple. No JVD. LUNGS: Clear to auscultation. No wheezes or rhonchi. No intercostal retractions. HEART: Slightly irregular rate and rhythm. No murmur. ABDOMEN: Soft No tenderness. EXTREMITIES: No pedal edema. No calf tenderness. NEUROLOGICAL: Patient is awake, alert and oriented x3. Assessment: Paroxysmal atrial fibrillation, unknown onset, patient is asymptomatic Right kidney stone with mild right hydronephrosis Hypertension Hyperlipidemia Diabetes Lung nodules Plan: Continue Eliquis, amlodipine 10 mg daily, atorvastatin, lisinopril 40 mg daily No plan for beta-eamon at this time. Patient will be followed up in the office with Dr. Rojo and he will make further medication adjustments as needed and most likely patient will wear event monitor. Patient is cleared for discharge from a cardiology perspective and will follow- up with Dr. Rojo in 2 weeks. Nurse practitioner note has been reviewed, I agree with documented findings and plan of care. Patient was seen and examined. Objective - Vital Signs Vital signs: Vital Signs Temp 97.7 F 12/05/24 03:00 Pulse 89 12/05/24 03:00 Resp 16 12/05/24 03:00 BP 132/73 12/05/24 03:00 Pulse Ox 99 12/05/24 03:00 FiO2 Intake & Output 12/04/24 12/05/24 12/05/24 18:59 06:59 18:59 Intake Total 2778.847 Output Total 0 Balance 2778.847 Weight 124.738 kg Intake: IV 550 Intake, IV Titration 188.847 Amount Heparin Sod,Pork in 0.45% 188.847 NaCl 25,000 unit In 0.45 % NaCl 1 250ml.bag @ 8. 017 UNITS/KG/HR 10 mls/hr IV .Q24H RANULFO Rx#: [id number] Oral 2039 Output: Estimated Blood Loss 0 Other: # Voids 2 2 - Labs CBC & Chem 7: 12/04/24 06:12 12/04/24 06:12 Labs: Abnormal Lab Results - Last 24 Hours (Table) 12/04/24 12/04/24 12/04/24 Range/Units 06:12 06:12 12:34 RBC 3.79 L (4.40-5.60) X 10*6/uL Hgb 12.1 L (13.0-17.0) g/dL Hct 36.9 L (39.6-50.0) % MCV 97.4 H (80.0-97.0) FL Eosinophils # 0.43 H (0.04-0.35) X 10*3/uL BUN/Creatinine Ratio 11.73 L (12.00-20.00) Ratio Glucose 152 H (70-110) mg/dL POC Glucose (mg/dL) 125 H (70-110) mg/dL Calcium 8.4 L (8.7-10.3) mg/dL 12/04/24 12/04/24 12/04/24 Range/Units 14:54 17:40 20:28 RBC (4.40-5.60) X 10*6/uL Hgb (13.0-17.0) g/dL Hct (39.6-50.0) % MCV (80.0-97.0) FL Eosinophils # (0.04-0.35) X 10*3/uL BUN/Creatinine Ratio (12.00-20.00) Ratio Glucose (70-110) mg/dL POC Glucose (mg/dL) 111 H 141 H 208 H (70-110) mg/dL Calcium (8.7-10.3) mg/dL 12/05/24 Range/Units 06:38 RBC (4.40-5.60) X 10*6/uL Hgb (13.0-17.0) g/dL Hct (39.6-50.0) % MCV (80.0-97.0) FL Eosinophils # (0.04-0.35) X 10*3/uL BUN/Creatinine Ratio (12.00-20.00) Ratio Glucose (70-110) mg/dL POC Glucose (mg/dL) 133 H (70-110) mg/dL Calcium (8.7-10.3) mg/dL
--- NOTE | 2024-12-05 23:55 | P.DS ---
Providers Date of admission: 12/02/24 13:25 Attending physician: Jose Rafael Brown MD Consults: 12/02/24 14:04 Consult Physician Routine Consulting Provider: Miky Del Rio Consult Reason/Comments: new onset afib Do you want consulting provider notified?: Yes 12/02/24 17:18 Consult Physician Routine Consulting Provider: Yosef Payne Consult Reason/Comments: kid stone Do you want consulting provider notified?: Yes, Notify in am Primary care physician: Sallie Wilson Hospital Course: Diagnoses: New onset A-fib with controlled rate. Cleared by terrazzo roller for discharge Right kidney stone 6 mm at the right ureteropelvic junction with mild right hydronephrosis. Status post cystoscopy and right ureteral stent placement. Today postop day #0 Acute kidney injury, mild Lung nodule 3 mm in the right lower lung. Hypertension Hyperlipidemia Diabetes mellitus Obesity with BMI of 37.3. Hospital course This is a pleasant 69 years old male with past medical history of hypertension diabetes mellitus and dyslipidemia. Presents because of abdominal pain since about 9/10 in severity in the right upper quadrant and to the right side of the abdomen . CT of the abdomen and pelvis showing mild right hydronephrosis secondary to obstructive 6 mm calculus at the ureteropelvic junction.. Patient evaluated by urologist he underwent cystoscopy and stent placement in the right ureter. Patient's symptoms improved and he was cleared for discharge by urologist. Patient does not have signs symptoms of infection he does not need antibiotics with no fever or leukocytosis. Patient was found to have also new onset A-fib with rate control evaluated by cardiology started on a blood thinner heparin drip switched to Eliquis co-pay is $40 per month and patient is agreeable. On the day of discharge patient denies any other new complaints Patient was cleared for discharge by urologist and terrazzo roller Problems and management plan were discussed with the patient and he verbalized understanding and acceptance Patient was found stable and can be discharged home in guarded prognosis however he needs follow-up as an outpatient. Patient was instructed to follow up with PCP within one week and patient agrees Patient was instructed to follow-up with urologist and terrazzo roller as an in discharge instruction Physical exam Gen: patient is a AAOx3, no distress CVS: S1-S2, RRR, no murmur Lungs: B/L CTA, no wheezing Abdomen: soft, no distention, no tenderness, positive bowel sounds Extremity: no leg edema or induration Time spent more than 35 minutes Patient Condition at Discharge: Stable Plan - Discharge Summary Discharge Rx Participant: No New Discharge Prescriptions: New Apixaban [Eliquis] 5 mg PO BID #60 tab amLODIPine [Norvasc] 10 mg PO DAILY #30 tab lisinopriL [Zestril] 40 mg PO DAILY #60 tab Continue metFORMIN HCL [Glucophage] 500 mg PO BID Hydrocortisone Cream [Hydrocortisone 2.5% Cream] 1 applic TOPICAL BID PRN PRN Reason: scalp irritation Fluocinonide 0.05% [Lidex 0.05% cream] 1 applic TOPICAL BID PRN PRN Reason: scalp irritation oxyCODONE-APAP 5-325MG [Percocet 5-325 mg] 1 tab PO Q6H PRN PRN Reason: Pain Omeprazole 20 mg PO DAILY PRN PRN Reason: Heartburn glipiZIDE [glipiZIDE ER] 10 mg PO DAILY Triamcinolone 0.1% Ointment [Kenalog 0.1% Ointment] 1 applic TOPICAL BID PRN PRN Reason: scalp irritation Betamethasone Dipropionate [Betamethasone Dipropionate 0.05%] 1 applic TOPICAL DAILY PRN PRN Reason: scalp irritation Simvastatin [Zocor] 20 mg PO DAILY Naproxen [Naprosyn] 500 mg PO BID PRN 3 Days #0 PRN Reason: Pain Discharge Medication List metFORMIN HCL [Glucophage] 500 mg PO BID 05/10/22 [History] Betamethasone Dipropionate [Betamethasone Dipropionate 0.05%] 1 applic TOPICAL DAILY PRN 12/02/24 [History] Fluocinonide 0.05% [Lidex 0.05% cream] 1 applic TOPICAL BID PRN 12/02/24 [History] Hydrocortisone Cream [Hydrocortisone 2.5% Cream] 1 applic TOPICAL BID PRN 12/02/24 [History] Omeprazole 20 mg PO DAILY PRN 12/02/24 [History] Simvastatin [Zocor] 20 mg PO DAILY 12/02/24 [History] Triamcinolone 0.1% Ointment [Kenalog 0.1% Ointment] 1 applic TOPICAL BID PRN 12/02/24 [History] glipiZIDE [glipiZIDE ER] 10 mg PO DAILY 12/02/24 [History] oxyCODONE-APAP 5-325MG [Percocet 5-325 mg] 1 tab PO Q6H PRN 12/02/24 [History] Apixaban [Eliquis] 5 mg PO BID #60 tab 12/03/24 [Rx] Naproxen [Naprosyn] 500 mg PO BID PRN 3 Days #0 12/04/24 [Rx] amLODIPine [Norvasc] 10 mg PO DAILY #30 tab 12/04/24 [Rx] lisinopriL [Zestril] 40 mg PO DAILY #60 tab 12/04/24 [Rx] Follow up Appointment(s)/Referral(s): Sallie Wilson MD [Primary Care Provider] - 1-2 days Feliciano Rojo MD [STAFF PHYSICIAN] - 2 Weeks Marbin Butler MD [STAFF PHYSICIAN] - 2 Weeks (Your urologist) Activity/Diet/Wound Care/Special Instructions: Heart healthy diet Activity is restricted please see your doctor While you are on blood thinner please monitor for signs of bleeding like blood in the urine or any stool Discharge Disposition: HOME SELF-CARE
== END 2024-12-05 12:24 | disposition home or self-care (01) | DRG 661 ==
LOC: EC 10:08 → 6NMEDSUR 13:24 → OBSVTOIN 13:25 → 6NMEDSUR 18:55
PROVIDERS: ADMIT Internal Medicine; ATTEND Internal Medicine
PROC: 0T768DZ Dilation of Right Ureter with Intraluminal Device, Via Natural or Artificial Opening Endoscopic (ICD-10-PCS; principal; 2024-12-04 07:30)
DX: N13.2 Hydronephrosis with renal and ureteral calculous obstruction (principal); N17.9 Acute kidney failure, unspecified; E11.9 Type 2 diabetes mellitus without complications; Z68.37 Body mass index [BMI] 37.0-37.9, adult; I10 Essential (primary) hypertension; K76.0 Fatty (change of) liver, not elsewhere classified; I48.0 Paroxysmal atrial fibrillation; E78.5 Hyperlipidemia, unspecified; E66.9 Obesity, unspecified; Z79.01 Long term (current) use of anticoagulants; Z79.84 Long term (current) use of oral hypoglycemic drugs; Z79.899 Other long term (current) drug therapy
CPT/HCPCS: 36415; 74177; 80048; 80053; 80061; 81001; 82150; 83036; 83605; 83690; 84443; 85025; 85610; 85730; 93005; 96361; 96365; 96366; 96375; 99285